=== PATIENT | male | born 1975 | race American Indian/Alaskan Native ===

== ENCOUNTER 2022-01-08 18:13 | Inpatient (IN) | payer OTHER ==
[2022-01-08] MEDS ORDERED: ETOMIDATE 20 MG/10 ML INJ IV ONE (18:33)
[2022-01-08] MEDS ORDERED: SUCCINYLCHOLINE CHLORIDE 200 MG/10 ML INJ MDV ONE (18:33)
[2022-01-08] MEDS ORDERED: ROCURONIUM 50 MG/5 ML INJ IV ONE (18:34)
[2022-01-08] MEDS ORDERED: SODIUM CHLORIDE 0.9% 1000 ML IV SOLN IV ONE (18:34)
[2022-01-08] MEDS ORDERED: ACETAMINOPHEN 650 MG RECT SUPP PR ONE (18:36)
[2022-01-08] MEDS ORDERED: LIDOCAINE (1%) 10 MG/1 ML VIAL 20 ML MDV ONE (18:36)
[2022-01-08] MEDS ORDERED: LIDOCAINE PF 100 MG/5 ML (CARDIAC SYRINGE) IV ONE (18:38)
[2022-01-08] MEDS ORDERED: LIP THERAPY VASELINE TP PRN (18:59)
[2022-01-08] MEDS ORDERED: MINERAL OIL/PETROLATUM, WHITE OPHTH OINT 3.5 GM OU PRN (18:59)
--- NOTE | 2022-01-08 19:05 | Emergency Department Report ---
ED Altered Mental Status HPI - General Chief Complaint: Altered Mental Status Stated Complaint: ams Time Seen by Provider: 01/08/22 18:20 Source: EMS Mode of arrival: Stretcher Limitations: Altered Mental Status - History of Present Illness Initial Comments: 46-year-old male with a past remote history of hypertension presents to the hospital with alteration mental status. EMS reports that patient was combative at the scene and fighting with them. He received Haldol 5 mg, Benadryl 50 mg, and Versed 5 mg prior to arrival. Patient is noted to have significant hypertension with a blood glucose of 405 as per EMS. presents at the same time as EMS stating that she last spoke to the patient at 1 PM and he was acting normal. He is complaining of headache for last 2 days. She called him around 4:15 PM he did not answer the phone. He has a previous history of hypertension but is not currently on meds. He apparently does not have any history of diabetes. He has not been complaining of any fevers or infectious symptoms. She denies that he abuses drugs. He received his COVID booster 2 weeks ago Patient presents agitated with sonorous respirations unable to provide any history of present illness. Given history and presentation decision was made to intubate patient early for airway protection and stabilization for further imaging and work-up. Patient was noted to be tachycardic, significantly hypertensive, febrile, and diaphoretic upon arrival - Related Data Allergies Allergy/AdvReac Type Severity Reaction Status Date / Time No Known Allergies Allergy Verified 01/08/22 18:54 ED Review of Systems ROS: Stated complaint: ams Other details as noted in HPI Comment: Unobtainable due to pts medical conditions ED Past Medical Hx - Past Medical History Hx Hypertension: Yes Hx Diabetes: Yes - Surgical History Past Surgical History?: No ED Physical Exam - General Limitations: Altered Mental Status - Other Other exam information: General: Altered Head: Atraumatic Eyes: normal appearance, bilateral pinpoint pupils without Neck: Normal appearance Chest: Clear to auscultation bilaterally CV: Tachycardic regular rhythm Abdomen: Soft, normal bowel sounds, nontender, nondistended, no rebound or guarding Back: Normal inspection Extremity: Normal inspection, full range of motion Neuro: Lethargic, sonorous respirations, intermittent combativeness bilateral medial upper and lower extremities with grossly 5/5 strength requiring restraint Psych: Appropriate behavior Skin: Diaphoretic movement of bilateral ED Course Vital Signs 01/08/22 01/08/22 01/08/22 18:18 18:58 19:40 Temperature 102.9 F H Pulse Rate 130 H 151 H 156 H Respiratory 24 26 H Rate Blood Pressure 252/178 Blood Pressure 235/160 210/186 [Left] O2 Sat by Pulse 100 99 100 Oximetry 01/08/22 01/08/22 22:27 22:30 Temperature Pulse Rate 115 H 114 H Respiratory 30 H 30 H Rate Blood Pressure Blood Pressure 152/103 160/98 [Left] O2 Sat by Pulse 100 100 Oximetry - Consultations Consultation #1: 01/08/22 22:02 yusra KAYE approved admission here, 01/08/22 23:13 case d/w Critical care MD Dr Foster - Intubation Time Out Performed: Yes Sedative: Etomidate Mg Given: 20 Paralytic: Rocuronium Mg Given: 100 Laryngoscope: fiberoptic video scope Size: 4 ET Tube Size: 7.5 Tube Secured Depth (cm): 23 Tube Secured Location: lips Tube Placement Confirmation: visualized tube passing t, equal breath sounds bilat, no breath sounds over epi, confirmation by capnometr Patient Tolerated Procedure: well, no complications Intubation Complications: none - Lumbar Puncture Consent Obtained: written consent Time Out Performed: Yes Indication for Procedure: headache, fever work up Patient Position: left lateral decubitus Skin Prep: Povidone-Iodine 1% Spinal Needle Gauge: 20G Spinal Needle Length: 3.5in Interspace Used: L3-L4 Fluid Initially Obtained: clear Complications: none Patient Tolerated Procedure: well - Lab Data Result diagrams: 01/08/22 18:58 01/08/22 22:26 Lab Results 01/08/22 01/08/22 01/08/22 Range/Units 18:31 18:58 18:58 WBC 13.6 H (4.5-11.0) K/mm3 RBC 6.06 H (3.65-5.03) M/mm3 Hgb 18.1 H (11.8-15.2) gm/dl Hct 55.9 H (35.5-45.6) % MCV 92 (84-94) fl MCH 30 (28-32) pg MCHC 32 (32-34) % RDW 13.0 L (13.2-15.2) % Plt Count 178 (140-440) K/mm3 Lymph % (Auto) 14.1 (13.4-35.0) % [place] % (Auto) 4.5 (0.0-7.3) % Eos % (Auto) 0.0 (0.0-4.3) % Baso % (Auto) 0.3 (0.0-1.8) % Lymph # (Auto) 1.9 (1.2-5.4) K/mm3 [place] # (Auto) 0.6 (0.0-0.8) K/mm3 Eos # (Auto) 0.0 (0.0-0.4) K/mm3 Baso # (Auto) 0.0 (0.0-0.1) K/mm3 Seg Neutrophils % 81.1 H (40.0-70.0) % Seg Neutrophils # 11.0 H (1.8-7.7) K/mm3 PT (12.2-14.9) Sec. INR (0.87-1.13) APTT (24.2-36.6) Sec. ABG pH (7.320-7.450) POC ABG pCO2 (32.0-48.0) mmHg POC ABG pO2 (83-108) mmHg POC ABG HCO3 ABG O2 Saturation (0-100) POC ABG Base Excess ABG Hemoglobin (12.0-17.5) ABG Oxyhemoglobin (94-98) ABG Methemoglobin (0.0-1.5) VBG pH (7.320-7.420) Carboxyhemoglobin (0.5-1.5) FiO2 % Sodium 134 L (137-145) mmol/L Potassium 4.2 (3.6-5.0) mmol/L Chloride 89.7 L (98-107) mmol/L Carbon Dioxide 18 L (22-30) mmol/L Anion Gap 31 mmol/L BUN 19 (9-20) mg/dL Creatinine 1.4 H (0.8-1.3) mg/dL Estimated GFR 55 ml/min BUN/Creatinine Ratio 14 % Glucose 663 H* (75-100) mg/dL POC Glucose > 600 H (70-105) mg/dL Hemoglobin A1c (4-6) % Lactic Acid (0.7-2.0) mmol/L Calcium 10.1 (8.4-10.2) mg/dL Phosphorus (2.5-4.5) mg/dL Magnesium (1.7-2.3) mg/dL Total Bilirubin 0.60 (0.1-1.2) mg/dL AST 26 (5-40) units/L ALT 34 (7-56) units/L Alkaline Phosphatase 216 H (35-129) units/L Ammonia (25-60) umol/L Troponin T < 0.010 (0.00-0.029) ng/mL Total Protein 8.6 H (6.3-8.2) g/dL Albumin 4.8 (3.9-5) g/dL Albumin/Globulin Ratio 1.3 % TSH (0.270-4.200) mlU/mL Urine Color (Yellow) Urine Turbidity (Clear) Urine pH (5.0-7.0) Ur Specific [place] (1.003-1.030) Urine Protein (Negative) mg/dL Urine Glucose (UA) (Negative) mg/dL Urine Ketones (Negative) mg/dL Urine Blood (Negative) Urine Nitrite (Negative) Urine Bilirubin (Negative) Urine Urobilinogen (<2.0) mg/dL Ur Leukocyte Esterase (Negative) Urine WBC (Auto) (0.0-6.0) /HPF Urine RBC (Auto) (0.0-6.0) /HPF U Epithel Cells (Auto) (0-13.0) /HPF Urine Mucus /HPF CSF Appearance CSF Color CSF WBC (1-10) /mm3 CSF RBC (0-0) /mm3 CSF Glucose mg/dL CSF Total Protein mg/dL Urine Opiates Screen Urine Methadone Screen Ur Barbiturates Screen Ur Phencyclidine Scrn Ur Amphetamines Screen U Benzodiazepines Scrn Urine Cocaine Screen U Marijuana (THC) Screen Drugs of Abuse Note Plasma/Serum Alcohol (0-0.07) % Blood Type Antibody Screen 01/08/22 01/08/22 01/08/22 Range/Units 18:58 18:58 18:58 WBC (4.5-11.0) K/mm3 RBC (3.65-5.03) M/mm3 Hgb (11.8-15.2) gm/dl Hct (35.5-45.6) % MCV (84-94) fl MCH (28-32) pg MCHC (32-34) % RDW (13.2-15.2) % Plt Count (140-440) K/mm3 Lymph % (Auto) (13.4-35.0) % [place] % (Auto) (0.0-7.3) % Eos % (Auto) (0.0-4.3) % Baso % (Auto) (0.0-1.8) % Lymph # (Auto) (1.2-5.4) K/mm3 [place] # (Auto) (0.0-0.8) K/mm3 Eos # (Auto) (0.0-0.4) K/mm3 Baso # (Auto) (0.0-0.1) K/mm3 Seg Neutrophils % (40.0-70.0) % Seg Neutrophils # (1.8-7.7) K/mm3 PT 14.6 (12.2-14.9) Sec. INR 1.03 (0.87-1.13) APTT 20.1 L (24.2-36.6) Sec. ABG pH (7.320-7.450) POC ABG pCO2 (32.0-48.0) mmHg POC ABG pO2 (83-108) mmHg POC ABG HCO3 ABG O2 Saturation (0-100) POC ABG Base Excess ABG Hemoglobin (12.0-17.5) ABG Oxyhemoglobin (94-98) ABG Methemoglobin (0.0-1.5) VBG pH 7.262 L (7.320-7.420) Carboxyhemoglobin (0.5-1.5) FiO2 % Sodium (137-145) mmol/L Potassium (3.6-5.0) mmol/L Chloride (98-107) mmol/L Carbon Dioxide (22-30) mmol/L Anion Gap mmol/L BUN (9-20) mg/dL Creatinine (0.8-1.3) mg/dL Estimated GFR ml/min BUN/Creatinine Ratio % Glucose (75-100) mg/dL POC Glucose (70-105) mg/dL Hemoglobin A1c (4-6) % Lactic Acid 6.80 H* (0.7-2.0) mmol/L Calcium (8.4-10.2) mg/dL Phosphorus (2.5-4.5) mg/dL Magnesium (1.7-2.3) mg/dL Total Bilirubin (0.1-1.2) mg/dL AST (5-40) units/L ALT (7-56) units/L Alkaline Phosphatase (35-129) units/L Ammonia (25-60) umol/L Troponin T (0.00-0.029) ng/mL Total Protein (6.3-8.2) g/dL Albumin (3.9-5) g/dL Albumin/Globulin Ratio % TSH (0.270-4.200) mlU/mL Urine Color (Yellow) Urine Turbidity (Clear) Urine pH (5.0-7.0) Ur Specific [place] (1.003-1.030) Urine Protein (Negative) mg/dL Urine Glucose (UA) (Negative) mg/dL Urine Ketones (Negative) mg/dL Urine Blood (Negative) Urine Nitrite (Negative) Urine Bilirubin (Negative) Urine Urobilinogen (<2.0) mg/dL Ur Leukocyte Esterase (Negative) Urine WBC (Auto) (0.0-6.0) /HPF Urine RBC (Auto) (0.0-6.0) /HPF U Epithel Cells (Auto) (0-13.0) /HPF Urine Mucus /HPF CSF Appearance CSF Color CSF WBC (1-10) /mm3 CSF RBC (0-0) /mm3 CSF Glucose mg/dL CSF Total Protein mg/dL Urine Opiates Screen Urine Methadone Screen Ur Barbiturates Screen Ur Phencyclidine Scrn Ur Amphetamines Screen U Benzodiazepines Scrn Urine Cocaine Screen U Marijuana (THC) Screen Drugs of Abuse Note Plasma/Serum Alcohol (0-0.07) % Blood Type Antibody Screen 01/08/22 01/08/22 01/08/22 Range/Units 18:58 18:58 18:58 WBC (4.5-11.0) K/mm3 RBC (3.65-5.03) M/mm3 Hgb (11.8-15.2) gm/dl Hct (35.5-45.6) % MCV (84-94) fl MCH (28-32) pg MCHC (32-34) % RDW (13.2-15.2) % Plt Count (140-440) K/mm3 Lymph % (Auto) (13.4-35.0) % [place] % (Auto) (0.0-7.3) % Eos % (Auto) (0.0-4.3) % Baso % (Auto) (0.0-1.8) % Lymph # (Auto) (1.2-5.4) K/mm3 [place] # (Auto) (0.0-0.8) K/mm3 Eos # (Auto) (0.0-0.4) K/mm3 Baso # (Auto) (0.0-0.1) K/mm3 Seg Neutrophils % (40.0-70.0) % Seg Neutrophils # (1.8-7.7) K/mm3 PT (12.2-14.9) Sec. INR (0.87-1.13) APTT (24.2-36.6) Sec. ABG pH (7.320-7.450) POC ABG pCO2 (32.0-48.0) mmHg POC ABG pO2 (83-108) mmHg POC ABG HCO3 ABG O2 Saturation (0-100) POC ABG Base Excess ABG Hemoglobin (12.0-17.5) ABG Oxyhemoglobin (94-98) ABG Methemoglobin (0.0-1.5) VBG pH (7.320-7.420) Carboxyhemoglobin (0.5-1.5) FiO2 % Sodium (137-145) mmol/L Potassium (3.6-5.0) mmol/L Chloride (98-107) mmol/L Carbon Dioxide (22-30) mmol/L Anion Gap mmol/L BUN (9-20) mg/dL Creatinine (0.8-1.3) mg/dL Estimated GFR ml/min BUN/Creatinine Ratio % Glucose (75-100) mg/dL POC Glucose (70-105) mg/dL Hemoglobin A1c (4-6) % Lactic Acid (0.7-2.0) mmol/L Calcium (8.4-10.2) mg/dL Phosphorus 7.20 H (2.5-4.5) mg/dL Magnesium 2.20 (1.7-2.3) mg/dL Total Bilirubin (0.1-1.2) mg/dL AST (5-40) units/L ALT (7-56) units/L Alkaline Phosphatase (35-129) units/L Ammonia 53.0 (25-60) umol/L Troponin T (0.00-0.029) ng/mL Total Protein (6.3-8.2) g/dL Albumin (3.9-5) g/dL Albumin/Globulin Ratio % TSH (0.270-4.200) mlU/mL Urine Color (Yellow) Urine Turbidity (Clear) Urine pH (5.0-7.0) Ur Specific [place] (1.003-1.030) Urine Protein (Negative) mg/dL Urine Glucose (UA) (Negative) mg/dL Urine Ketones (Negative) mg/dL Urine Blood (Negative) Urine Nitrite (Negative) Urine Bilirubin (Negative) Urine Urobilinogen (<2.0) mg/dL Ur Leukocyte Esterase (Negative) Urine WBC (Auto) (0.0-6.0) /HPF Urine RBC (Auto) (0.0-6.0) /HPF U Epithel Cells (Auto) (0-13.0) /HPF Urine Mucus /HPF CSF Appearance CSF Color CSF WBC (1-10) /mm3 CSF RBC (0-0) /mm3 CSF Glucose mg/dL CSF Total Protein mg/dL Urine Opiates Screen Urine Methadone Screen Ur Barbiturates Screen Ur Phencyclidine Scrn Ur Amphetamines Screen U Benzodiazepines Scrn Urine Cocaine Screen U Marijuana (THC) Screen Drugs of Abuse Note Plasma/Serum Alcohol < 0.01 (0-0.07) % Blood Type Antibody Screen 01/08/22 01/08/22 01/08/22 Range/Units 18:58 19:00 20:19 WBC (4.5-11.0) K/mm3 RBC (3.65-5.03) M/mm3 Hgb (11.8-15.2) gm/dl Hct (35.5-45.6) % MCV (84-94) fl MCH (28-32) pg MCHC (32-34) % RDW (13.2-15.2) % Plt Count (140-440) K/mm3 Lymph % (Auto) (13.4-35.0) % [place] % (Auto) (0.0-7.3) % Eos % (Auto) (0.0-4.3) % Baso % (Auto) (0.0-1.8) % Lymph # (Auto) (1.2-5.4) K/mm3 [place] # (Auto) (0.0-0.8) K/mm3 Eos # (Auto) (0.0-0.4) K/mm3 Baso # (Auto) (0.0-0.1) K/mm3 Seg Neutrophils % (40.0-70.0) % Seg Neutrophils # (1.8-7.7) K/mm3 PT (12.2-14.9) Sec. INR (0.87-1.13) APTT (24.2-36.6) Sec. ABG pH (7.320-7.450) POC ABG pCO2 (32.0-48.0) mmHg POC ABG pO2 (83-108) mmHg POC ABG HCO3 ABG O2 Saturation (0-100) POC ABG Base Excess ABG Hemoglobin (12.0-17.5) ABG Oxyhemoglobin (94-98) ABG Methemoglobin (0.0-1.5) VBG pH (7.320-7.420) Carboxyhemoglobin (0.5-1.5) FiO2 % Sodium (137-145) mmol/L Potassium (3.6-5.0) mmol/L Chloride (98-107) mmol/L Carbon Dioxide (22-30) mmol/L Anion Gap mmol/L BUN (9-20) mg/dL Creatinine (0.8-1.3) mg/dL Estimated GFR ml/min BUN/Creatinine Ratio % Glucose (75-100) mg/dL POC Glucose (70-105) mg/dL Hemoglobin A1c 10.2 H (4-6) % Lactic Acid (0.7-2.0) mmol/L Calcium (8.4-10.2) mg/dL Phosphorus (2.5-4.5) mg/dL Magnesium (1.7-2.3) mg/dL Total Bilirubin (0.1-1.2) mg/dL AST (5-40) units/L ALT (7-56) units/L Alkaline Phosphatase (35-129) units/L Ammonia (25-60) umol/L Troponin T (0.00-0.029) ng/mL Total Protein (6.3-8.2) g/dL Albumin (3.9-5) g/dL Albumin/Globulin Ratio % TSH 1.110 (0.270-4.200) mlU/mL Urine Color (Yellow) Urine Turbidity (Clear) Urine pH (5.0-7.0) Ur Specific [place] (1.003-1.030) Urine Protein (Negative) mg/dL Urine Glucose (UA) (Negative) mg/dL Urine Ketones (Negative) mg/dL Urine Blood (Negative) Urine Nitrite (Negative) Urine Bilirubin (Negative) Urine Urobilinogen (<2.0) mg/dL Ur Leukocyte Esterase (Negative) Urine WBC (Auto) (0.0-6.0) /HPF Urine RBC (Auto) (0.0-6.0) /HPF U Epithel Cells (Auto) (0-13.0) /HPF Urine Mucus /HPF CSF Appearance CSF Color CSF WBC (1-10) /mm3 CSF RBC (0-0) /mm3 CSF Glucose mg/dL CSF Total Protein mg/dL Urine Opiates Screen Urine Methadone Screen Ur Barbiturates Screen Ur Phencyclidine Scrn Ur Amphetamines Screen U Benzodiazepines Scrn Urine Cocaine Screen U Marijuana (THC) Screen Drugs of Abuse Note Plasma/Serum Alcohol (0-0.07) % Blood Type B POSITIVE Antibody Screen Negative 01/08/22 01/08/22 01/08/22 Range/Units 20:20 20:20 20:43 WBC (4.5-11.0) K/mm3 RBC (3.65-5.03) M/mm3 Hgb (11.8-15.2) gm/dl Hct (35.5-45.6) % MCV (84-94) fl MCH (28-32) pg MCHC (32-34) % RDW (13.2-15.2) % Plt Count (140-440) K/mm3 Lymph % (Auto) (13.4-35.0) % [place] % (Auto) (0.0-7.3) % Eos % (Auto) (0.0-4.3) % Baso % (Auto) (0.0-1.8) % Lymph # (Auto) (1.2-5.4) K/mm3 [place] # (Auto) (0.0-0.8) K/mm3 Eos # (Auto) (0.0-0.4) K/mm3 Baso # (Auto) (0.0-0.1) K/mm3 Seg Neutrophils % (40.0-70.0) % Seg Neutrophils # (1.8-7.7) K/mm3 PT (12.2-14.9) Sec. INR (0.87-1.13) APTT (24.2-36.6) Sec. ABG pH (7.320-7.450) POC ABG pCO2 (32.0-48.0) mmHg POC ABG pO2 (83-108) mmHg POC ABG HCO3 ABG O2 Saturation (0-100) POC ABG Base Excess ABG Hemoglobin (12.0-17.5) ABG Oxyhemoglobin (94-98) ABG Methemoglobin (0.0-1.5) VBG pH (7.320-7.420) Carboxyhemoglobin (0.5-1.5) FiO2 % Sodium (137-145) mmol/L Potassium (3.6-5.0) mmol/L Chloride (98-107) mmol/L Carbon Dioxide (22-30) mmol/L Anion Gap mmol/L BUN (9-20) mg/dL Creatinine (0.8-1.3) mg/dL Estimated GFR ml/min BUN/Creatinine Ratio % Glucose (75-100) mg/dL POC Glucose > 600 H (70-105) mg/dL Hemoglobin A1c (4-6) % Lactic Acid (0.7-2.0) mmol/L Calcium (8.4-10.2) mg/dL Phosphorus (2.5-4.5) mg/dL Magnesium (1.7-2.3) mg/dL Total Bilirubin (0.1-1.2) mg/dL AST (5-40) units/L ALT (7-56) units/L Alkaline Phosphatase (35-129) units/L Ammonia (25-60) umol/L Troponin T (0.00-0.029) ng/mL Total Protein (6.3-8.2) g/dL Albumin (3.9-5) g/dL Albumin/Globulin Ratio % TSH (0.270-4.200) mlU/mL Urine Color Yellow (Yellow) Urine Turbidity Clear (Clear) Urine pH 5.0 (5.0-7.0) Ur Specific [place] 1.030 (1.003-1.030) Urine Protein >500 (Negative) mg/dL Urine Glucose (UA) >=500 (Negative) mg/dL Urine Ketones Tr (Negative) mg/dL Urine Blood Lg (Negative) Urine Nitrite Neg (Negative) Urine Bilirubin Neg (Negative) Urine Urobilinogen < 2.0 (<2.0) mg/dL Ur Leukocyte Esterase Neg (Negative) Urine WBC (Auto) 3.0 (0.0-6.0) /HPF Urine RBC (Auto) 1.0 (0.0-6.0) /HPF U Epithel Cells (Auto) 1.0 (0-13.0) /HPF Urine Mucus Few /HPF CSF Appearance CSF Color CSF WBC (1-10) /mm3 CSF RBC (0-0) /mm3 CSF Glucose mg/dL CSF Total Protein mg/dL Urine Opiates Screen Presumptive negative Urine Methadone Screen Presumptive negative Ur Barbiturates Screen Presumptive negative Ur Phencyclidine Scrn Presumptive negative Ur Amphetamines Screen Presumptive negative U Benzodiazepines Scrn Presumptive positive Urine Cocaine Screen Presumptive negative U Marijuana (THC) Screen Presumptive negative Drugs of Abuse Note Disclamer Plasma/Serum Alcohol (0-0.07) % Blood Type Antibody Screen 01/08/22 01/08/22 01/08/22 Range/Units 21:05 21:40 21:59 WBC (4.5-11.0) K/mm3 RBC (3.65-5.03) M/mm3 Hgb (11.8-15.2) gm/dl Hct (35.5-45.6) % MCV (84-94) fl MCH (28-32) pg MCHC (32-34) % RDW (13.2-15.2) % Plt Count (140-440) K/mm3 Lymph % (Auto) (13.4-35.0) % [place] % (Auto) (0.0-7.3) % Eos % (Auto) (0.0-4.3) % Baso % (Auto) (0.0-1.8) % Lymph # (Auto) (1.2-5.4) K/mm3 [place] # (Auto) (0.0-0.8) K/mm3 Eos # (Auto) (0.0-0.4) K/mm3 Baso # (Auto) (0.0-0.1) K/mm3 Seg Neutrophils % (40.0-70.0) % Seg Neutrophils # (1.8-7.7) K/mm3 PT (12.2-14.9) Sec. INR (0.87-1.13) APTT (24.2-36.6) Sec. ABG pH 7.269 L (7.320-7.450) POC ABG pCO2 50.5 H (32.0-48.0) mmHg POC ABG pO2 402.0 H (83-108) mmHg POC ABG HCO3 22.6 ABG O2 Saturation 99.8 (0-100) POC ABG Base Excess -4.9 ABG Hemoglobin 17.6 H (12.0-17.5) ABG Oxyhemoglobin 98.8 H (94-98) ABG Methemoglobin 0.3 (0.0-1.5) VBG pH (7.320-7.420) Carboxyhemoglobin 0.7 (0.5-1.5) FiO2 % 100 Sodium (137-145) mmol/L Potassium (3.6-5.0) mmol/L Chloride (98-107) mmol/L Carbon Dioxide (22-30) mmol/L Anion Gap mmol/L BUN (9-20) mg/dL Creatinine (0.8-1.3) mg/dL Estimated GFR ml/min BUN/Creatinine Ratio % Glucose (75-100) mg/dL POC Glucose > 600 H (70-105) mg/dL Hemoglobin A1c (4-6) % Lactic Acid (0.7-2.0) mmol/L Calcium (8.4-10.2) mg/dL Phosphorus (2.5-4.5) mg/dL Magnesium (1.7-2.3) mg/dL Total Bilirubin (0.1-1.2) mg/dL AST (5-40) units/L ALT (7-56) units/L Alkaline Phosphatase (35-129) units/L Ammonia (25-60) umol/L Troponin T (0.00-0.029) ng/mL Total Protein (6.3-8.2) g/dL Albumin (3.9-5) g/dL Albumin/Globulin Ratio % TSH (0.270-4.200) mlU/mL Urine Color (Yellow) Urine Turbidity (Clear) Urine pH (5.0-7.0) Ur Specific [place] (1.003-1.030) Urine Protein (Negative) mg/dL Urine Glucose (UA) (Negative) mg/dL Urine Ketones (Negative) mg/dL Urine Blood (Negative) Urine Nitrite (Negative) Urine Bilirubin (Negative) Urine Urobilinogen (<2.0) mg/dL Ur Leukocyte Esterase (Negative) Urine WBC (Auto) (0.0-6.0) /HPF Urine RBC (Auto) (0.0-6.0) /HPF U Epithel Cells (Auto) (0-13.0) /HPF Urine Mucus /HPF CSF Appearance Clear CSF Color Colorless CSF WBC 0 (1-10) /mm3 CSF RBC 3 (0-0) /mm3 CSF Glucose 333 mg/dL CSF Total Protein 50 mg/dL Urine Opiates Screen Urine Methadone Screen Ur Barbiturates Screen Ur Phencyclidine Scrn Ur Amphetamines Screen U Benzodiazepines Scrn Urine Cocaine Screen U Marijuana (THC) Screen Drugs of Abuse Note Plasma/Serum Alcohol (0-0.07) % Blood Type Antibody Screen 01/08/22 01/08/22 01/08/22 Range/Units 22:26 22:26 23:26 WBC (4.5-11.0) K/mm3 RBC (3.65-5.03) M/mm3 Hgb (11.8-15.2) gm/dl Hct (35.5-45.6) % MCV (84-94) fl MCH (28-32) pg MCHC (32-34) % RDW (13.2-15.2) % Plt Count (140-440) K/mm3 Lymph % (Auto) (13.4-35.0) % [place] % (Auto) (0.0-7.3) % Eos % (Auto) (0.0-4.3) % Baso % (Auto) (0.0-1.8) % Lymph # (Auto) (1.2-5.4) K/mm3 [place] # (Auto) (0.0-0.8) K/mm3 Eos # (Auto) (0.0-0.4) K/mm3 Baso # (Auto) (0.0-0.1) K/mm3 Seg Neutrophils % (40.0-70.0) % Seg Neutrophils # (1.8-7.7) K/mm3 PT (12.2-14.9) Sec. INR (0.87-1.13) APTT (24.2-36.6) Sec. ABG pH (7.320-7.450) POC ABG pCO2 (32.0-48.0) mmHg POC ABG pO2 (83-108) mmHg POC ABG HCO3 ABG O2 Saturation (0-100) POC ABG Base Excess ABG Hemoglobin (12.0-17.5) ABG Oxyhemoglobin (94-98) ABG Methemoglobin (0.0-1.5) VBG pH (7.320-7.420) Carboxyhemoglobin (0.5-1.5) FiO2 % Sodium 137 (137-145) mmol/L Potassium 5.5 H D (3.6-5.0) mmol/L Chloride 97.2 L (98-107) mmol/L Carbon Dioxide 21 L (22-30) mmol/L Anion Gap 24 mmol/L BUN 22 H (9-20) mg/dL Creatinine 1.7 H (0.8-1.3) mg/dL Estimated GFR 53 ml/min BUN/Creatinine Ratio 13 % Glucose 639 H* (75-100) mg/dL POC Glucose 507 H (70-105) mg/dL Hemoglobin A1c (4-6) % Lactic Acid 4.30 H* (0.7-2.0) mmol/L Calcium 9.4 (8.4-10.2) mg/dL Phosphorus (2.5-4.5) mg/dL Magnesium (1.7-2.3) mg/dL Total Bilirubin (0.1-1.2) mg/dL AST (5-40) units/L ALT (7-56) units/L Alkaline Phosphatase (35-129) units/L Ammonia (25-60) umol/L Troponin T (0.00-0.029) ng/mL Total Protein (6.3-8.2) g/dL Albumin (3.9-5) g/dL Albumin/Globulin Ratio % TSH (0.270-4.200) mlU/mL Urine Color (Yellow) Urine Turbidity (Clear) Urine pH (5.0-7.0) Ur Specific [place] (1.003-1.030) Urine Protein (Negative) mg/dL Urine Glucose (UA) (Negative) mg/dL Urine Ketones (Negative) mg/dL Urine Blood (Negative) Urine Nitrite (Negative) Urine Bilirubin (Negative) Urine Urobilinogen (<2.0) mg/dL Ur Leukocyte Esterase (Negative) Urine WBC (Auto) (0.0-6.0) /HPF Urine RBC (Auto) (0.0-6.0) /HPF U Epithel Cells (Auto) (0-13.0) /HPF Urine Mucus /HPF CSF Appearance CSF Color CSF WBC (1-10) /mm3 CSF RBC (0-0) /mm3 CSF Glucose mg/dL CSF Total Protein mg/dL Urine Opiates Screen Urine Methadone Screen Ur Barbiturates Screen Ur Phencyclidine Scrn Ur Amphetamines Screen U Benzodiazepines Scrn Urine Cocaine Screen U Marijuana (THC) Screen Drugs of Abuse Note Plasma/Serum Alcohol (0-0.07) % Blood Type Antibody Screen - EKG Data -: EKG Interpreted by Ri EKG shows normal: sinus rhythm, ST-T waves (no stemi) Rate: tachycardia (134) When compared to previous EKG there are: previous EKG unavailable - Radiology Data Radiology results: report reviewed CHEST 1 VIEW INDICATION / CLINICAL INFORMATION: fever, intubation. COMPARISON: None available. FINDINGS: SUPPORT DEVICES: Endotracheal tube terminates approximately 6 cm above the [place] and appears in satisfactory position. HEART / MEDIASTINUM: No significant abnormality. LUNGS / PLEURA: Somewhat low lung volumes bibasilar atelectatic changes. Upper lungs clear. No pneumothorax. ADDITIONAL FINDINGS: No significant additional findings. IMPRESSION: 1. Satisfactory placement of endotracheal tube. 2. No active cardiopulmonary disease. CT HEAD WITHOUT CONTRAST INDICATION / CLINICAL INFORMATION: ams fever. TECHNIQUE: CT of the head was performed without administration of intravenous contrast. All CT scans at this location are performed using CT dose reduction for ALARA by means of automated exposure control. COMPARISON: None available. FINDINGS: CEREBRAL PARENCHYMA: Jerry-white matter differentiation within the cerebral hemispheres appears fairly well maintained. No mass lesion or cortical sulcal effacement demonstrated. No acute hemorrhage. HEMORRHAGE: None. EXTRA-AXIAL SPACES: Normal in size and morphology for the patient's age. VENTRICULAR SYSTEM: Normal in size and morphology for the patient's age. MIDLINE SHIFT / HERNIATION: None. CEREBELLUM / BRAINSTEM: Architectural details of the cerebellum are diminished likely in part due to streak artifact from the adjacent skull. Fourth ventricle appears effaced. Cerebellar tonsils lie at the foramen magnum. ORBITS: Normal as visualized. SOFT TISSUES: No significant abnormality. SKULL: No significant abnormality. PARANASAL SINUSES / MASTOID AIR CELLS: Normal as visualized. ADDITIONAL FINDINGS: None. IMPRESSION: 1. No distinct acute intracranial abnormality. Anatomic detail of the cerebellu m is diminished secondary to artifact. No gross evidence of acute cerebellar pathology. Fourth ventricle not well visualized. Mild effacement not excluded. - Medical Decision Making 46-year-old male presents to the hospital with alteration in mental status, combative behavior, fever, hypotension, and tachycardia. Patient required emergent in immediate intervention with several procedures. Collateral information obtained from family members and EMS. ED work-up reveals no signs of intracranial abnormality, normal x-ray, and lab suggestive of DKA, lactic acidosis, and sepsis. Hypertensive emergency also considered. Blood pressure improving with sedatives. Patient requiring multiple medications for adequate sedation. LP performed with results pending at disposition. Patient currently on insulin drip and received IV fluid as per sepsis protocol. Case discussed with hospitalist, critical care doctor, and ID consult ordered. Patient received antibiotic dosing for meningitis while results pending. Covid test ordered Critical Care Time: Yes Critical care time in (mins) excluding proc time.: 80 Critical care attestation.: If time is entered above; I have spent that time in minutes in the direct care of this critically ill patient, excluding procedure time. Critical Care Time: 80 Minutes of critical care time excluding procedures were used in the care of the patient. I came immediately to the bedside upon patient's arrival. I obtained history from EMS at the bedside. I discussed treatment plan with the nursing team members. I reviewed electronic record. I spoke with family to obtain medical history. Patient required multiple interventions and reassessments. Spoke with hospitalist and consultants for collaborative care ED Disposition Clinical Impression: Acute encephalopathy, Sepsis, DKA (diabetic ketoacidosis), New onset type 1 diabetes mellitus, uncontrolled, Hypertensive emergency Disposition: ADMITTED INPATIENT Is pt being admited?: Yes Condition: Stable Instructions: Diabetic Ketoacidosis (ED), Hypertension (ED) Referrals: PRIMARY CARE, [Primary Care Provider] - 3-5 Days Time of Disposition: 23:00 (Dr leonardo/hosp)
--- NOTE | 2022-01-08 19:38 | Cat Scan Report ---
CT HEAD WITHOUT CONTRAST INDICATION / CLINICAL INFORMATION: ams fever. TECHNIQUE: CT of the head was performed without administration of intravenous contrast. All CT scans at this location are performed using CT dose reduction for ALARA by means of automated exposure contr ol. COMPARISON: None available. FINDINGS: CEREBRAL PARENCHYMA: Jerry-white matter differentiation within the cerebral hemispheres appears fairly well maintained. No mass lesion or cortical sulcal effacement demonstrated. No acute hemorrhage. HEMORRHAGE: None. EXTRA-AXIAL SPACES: Normal in size and morphology for the patient's age. VENTRICULAR SYSTEM: Normal in size and morphology for the patient's age. MIDLINE SHIFT / HERNIATION: None. CEREBELLUM / BRAINSTEM: Architectural details of the cerebellum are diminished likely in part due to streak artifact from the adjacent skull. Fourth ventricle appears effaced. Cerebellar tonsils lie at the foramen magnum. ORBITS: Normal as visualized. SOFT TISSUES: No significant abnormality. SKULL: No significant abnormality. PARANASAL SINUSES / MASTOID AIR CELLS: Normal as visualized. ADDITIONAL FINDINGS: None. IMPRESSION: 1. No distinct acute intracranial abnormality. Anatomic detail of the cerebellum is diminished second cj to artifact. No gross evidence of acute cerebellar pathology. Fourth ventricle not well visualize d. Mild effacement not excluded. Signer Name: Charly Curry II, MD Signed: 01/08/2022 7:33 PM Workstation Name: [id number]
[2022-01-08 19:40] LABS: Basophils % (Auto) 0.3 % (0.0-1.8); Hematocrit 55.9 % (35.5-45.6); Hemoglobin 18.1 gm/dl (11.8-15.2); Lymphocytes # (Auto) 1.9 K/mm3 (1.2-5.4); Lymphocytes % (Auto) 14.1 % (13.4-35.0); Mean Corpuscular HGB Conc 32 % (32-34); Mean Corpuscular Volume 92 fl (84-94); Monocytes # (Auto) 0.6 K/mm3 (0.0-0.8); Monocytes % (Auto) 4.5 % (0.0-7.3); Platelet Count 178 K/mm3 (140-440); Red Blood Count 6.06 M/mm3 (3.65-5.03)
[2022-01-08 19:48] LABS: INR 1.03 (0.87-1.13)
[2022-01-08 19:49] LABS: Partial Thromboplastin Time 20.1 Sec. (24.2-36.6)
[2022-01-08 19:52] LABS: Alanine Aminotransferase 34 units/L (7-56); Albumin 4.8 g/dL (3.9-5); BUN/Creatinine Ratio 14; Blood Urea Nitrogen 19 mg/dL (9-20); Calcium 10.1 mg/dL (8.4-10.2); Hemolysis Index 35
--- NOTE | 2022-01-08 19:54 | XRay Report ---
CHEST 1 VIEW INDICATION / CLINICAL INFORMATION: fever, intubation. COMPARISON: None available. FINDINGS: SUPPORT DEVICES: Endotracheal tube terminates approximately 6 cm above the beth[place] and appears in sati sfactory position. HEART / MEDIASTINUM: No significant abnormality. LUNGS / PLEURA: Somewhat low lung volumes bibasilar atelectatic changes. Upper lungs clear. No pneumo thorax. ADDITIONAL FINDINGS: No significant additional findings. IMPRESSION: 1. Satisfactory placement of endotracheal tube. 2. No active cardiopulmonary disease. Signer Name: Charly Curry II, MD Signed: 01/08/2022 7:49 PM Workstation Name: [id number]
[2022-01-08] MEDS ORDERED: DEXTROSE 50% IN WATER (25GM) 50 ML SYRINGE IV PRN (20:08)
[2022-01-08] MEDS ORDERED: INSULIN REGULAR, HUMAN 100 UNITS/1 ML IV ONE (20:09)
[2022-01-08 20:39] LABS: Bilirubin,Urine NEG (Negative); Blood,Urine LG (Negative); Color,Urine Yellow (Yellow); Mucus,Urine FEW /HPF; Urobilinogen,Urine < 2.0 mg/dL (<2.0)
[2022-01-08 20:41] LABS: Protein,Urine >500 mg/dL (Negative)
[2022-01-08 20:46] LABS: Amphetamine Screen,Urine PRESUMPTIVE NEGATIVE; Benzodiazepines Screen,Urine PRESUMPTIVE POSITIVE; Cannabinoid Screen,Urine PRESUMPTIVE NEGATIVE; Cocaine Screen,Urine PRESUMPTIVE NEGATIVE; Methadone Screen,Urine PRESUMPTIVE NEGATIVE; Opiate Screen,Urine PRESUMPTIVE NEGATIVE
[2022-01-08] MEDS: INSULIN REGULAR, HUMAN 100 UNITS in SODIUM CHLORIDE 0.9% 99 ML IV SCH (21:00)
[2022-01-08] MEDS ORDERED: MIDAZOLAM/NS Drip 100mg/100ml 100 MG/100 ML BAG IV SCH (21:00)
[2022-01-08] MEDS ORDERED: MIDAZOLAM 5 MG/5 ML INJ MDV IV NR (21:00)
[2022-01-08] MEDS ORDERED: INSULIN REGULAR, HUMAN 100 UNITS in SODIUM CHLORIDE 0.9% 99 ML IV SCH (21:00)
[2022-01-08] MEDS ORDERED: KETAMINE 500 MG/5 ML VIAL MDV IV ONE (21:02)
[2022-01-08] MEDS ORDERED: cefTRIAXone/NS 2 GM/100 ML 2 GM/100 ML BAG IV ONE (21:39)
[2022-01-08] MEDS ORDERED: ACYCLOVIR IV ONE (21:39)
[2022-01-08] MEDS ORDERED: SODIUM CHLORIDE 0.9% IV ONE (21:39)
[2022-01-08] MEDS ORDERED: VANCOMYCIN 2,000 MG in SODIUM CHLORIDE 0.9% 500 ML 500 ML IV ONE (21:40)
[2022-01-08] MEDS ORDERED: FAMOTIDINE 20 MG/2 ML INJ IV SCH (22:00)
[2022-01-08] MEDS ORDERED: SENNOSIDES/DOCUSATE SODIUM 8.6/50 MG TAB FEEDTUBE SCH (22:00)
[2022-01-08 22:24] LABS: Glucose,CSF 333 mg/dL
[2022-01-08 23:15] LABS: Calcium 9.4 mg/dL (8.4-10.2)
[2022-01-08 23:56] LABS: Appearance,CSF Clear; Red Blood Cell,CSF 3 /mm3 (0-0); White Blood Cell,CSF 0 /mm3 (1-10)
[2022-01-09 00:05] LABS: Basophils CSF 0 %; Total Cells Counted 2 /mm3
[2022-01-09] MEDS ORDERED: HYDROmorphone 1 MG/1 ML INJ IV PRN ×2 (00:34)
[2022-01-09] MEDS ORDERED: MORPHINE 2 MG/1 ML INJ IV PRN (00:34)
[2022-01-09] MEDS ORDERED: ACETAMINOPHEN 325 MG TAB PO PRN (00:34)
[2022-01-09] MEDS ORDERED: DEXTROSE 50% IN WATER (25GM) 50 ML SYRINGE IV PRN ×2 (00:34→15:06)
[2022-01-09] MEDS ORDERED: ONDANSETRON 4 MG/2 ML INJ IV PRN (00:34)
[2022-01-09] MEDS ORDERED: ALBUTEROL 2.5 MG/3 ML NEBU IH PRN (00:34)
[2022-01-09] MEDS ORDERED: SODIUM CHLORIDE 0.9% 1000 ML 1,000 ML IV SCH (00:45)
[2022-01-09] MEDS ORDERED: VANCOMYCIN 1,000 MG in SODIUM CHLORIDE 0.9% 500 ML 500 ML IV SCH (00:45)
--- NOTE | 2022-01-09 00:45 | History and Physical Report ---
History of Present Illness Date of examination: 01/09/22 Date of admission: 01/09/22 Chief complaint: Altered mental status History of present illness: 46-year-old male with history of hypertension and diabetes presents to the hospital with alteration mental status. patient was combative at the scene and fighting with EMS at the scene. He received Haldol 5 mg, Benadryl 50 mg, and Versed 5 mg prior to arrival. Patient is noted to have significant hypertension with a blood glucose of 405 as per EMS. presents at the same time as EMS stating that she last spoke to the patient at 1 PM and he was acting normal. He is complaining of headache for last 2 days. She called him around 4:15 PM he did not answer the phone. He has not been complaining of any fevers or infectious symptoms. She denies that he abuses drugs. He received his COVID booster 2 weeks ago In the emergency room patient is found to have blood glucose of 639, bicarb is 21 creatinine 1.7 anion gap to 24 and BUN 22 also patient lactic acid is 4.30. CT scan of the head shows no distinct acute intracranial abnormality.normal x- ray, and lab suggestive of DKA, lactic acidosis, and sepsis. LP was done by the ER physician. We are going to admit the patient to the ICU. We will put the patient on IV fluid and insulin drip as per protocol. We also put the patient on IV Rocephin vancomycin and acyclovir Will consult critical care as well as infectious disease evaluation. Past History Past Medical History: diabetes, hypertension Medications and Allergies Allergies Allergy/AdvReac Type Severity Reaction Status Date / Time No Known Allergies Allergy Verified 01/08/22 18:54 Active Meds: Active Medications Dextrose (Dextrose 50% In Water (25gm) 50 Ml Syringe) 0 ml IV Q30MIN PRN; Protocol PRN Reason: Hypoglycemia Famotidine (Famotidine 20 Mg/2 Ml Inj) 20 mg IV BID SADAF Hydrophilic Ointment (Lip Therapy Vaseline) 1 applic TP Q2HR PRN PRN Reason: Dry Lips Propofol (Diprivan 10 Mg/Ml) 1,000 mg in 100 mls @ 3.688 mls/hr IV TITR SADAF; Protocol Last Titration: 01/08/22 19:10 Dose: 10 mcg/kg/min, 7.375 mls/hr Insulin Human Regular 100 (units/ Sodium Chloride) 100 mls @ 1 mls/hr IV TITR SADAF; Protocol MIDAZOLAM/NS Drip 100mg/100ml (Midazolam/Ns Drip 100mg/100ml) 100 mg in 100 mls @ 1 mls/hr IV TITR SADAF; Protocol Multi-Ingred Cream/Lotion/Oil/Oint (Mineral Oil/Petrolatum, White Ophth Oint 3.5 Gm) 1 applic OU Q4HR PRN PRN Reason: Dry Eye(s) Senna/Docusate Sodium (Sennosides/Docusate Sodium 8.6/50 Mg Tab) 1 tab FEEDTUBE BID SADAF Review of Systems Constitutional: fatigue, weakness, lethargy Neurological: change in mentation Exam - Constitutional Vitals: Temp Pulse Resp BP Pulse Ox 102.9 F H 114 H 30 H 160/98 100 01/08/22 19:40 01/08/22 22:30 01/08/22 22:30 01/08/22 22:30 01/08/22 22:30 General appearance: Present: no acute distress, well-nourished - EENT Eyes: Present: PERRL ENT: hearing intact, clear oral mucosa - Neck Neck: Present: supple, normal ROM - Respiratory Respiratory effort: normal Respiratory: bilateral: diminished - Cardiovascular Heart Sounds: Present: S1 & S2. Absent: rub, click - Extremities Extremities: pulses symmetrical, No edema Peripheral Pulses: within normal limits - Abdominal General gastrointestinal: Present: soft, non-tender, non-distended, normal bowel sounds Male genitourinary: Present: normal - Integumentary Integumentary: Present: clear, warm, dry - Musculoskeletal Musculoskeletal: gait normal, strength equal bilaterally - Psychiatric Psychiatric: other (Patient is on vent) - Neurologic Neurologic: CNII-XII intact, moves all extremities, other (Patient is on vent) HEART Score - HEART Score Troponin: Troponin T < 0.010 ng/mL (0.00-0.029) 01/08/22 18:58 Results - Labs CBC & Chem 7: 01/08/22 18:58 01/08/22 22:26 Labs: Laboratory Last Values WBC 13.6 K/mm3 (4.5-11.0) H 01/08/22 18:58 RBC 6.06 M/mm3 (3.65-5.03) H 01/08/22 18:58 Hgb 18.1 gm/dl (11.8-15.2) H 01/08/22 18:58 Hct 55.9 % (35.5-45.6) H 01/08/22 18:58 MCV 92 fl (84-94) 01/08/22 18:58 MCH 30 pg (28-32) 01/08/22 18:58 MCHC 32 % (32-34) 01/08/22 18:58 RDW 13.0 % (13.2-15.2) L 01/08/22 18:58 Plt Count 178 K/mm3 (140-440) 01/08/22 18:58 Lymph % (Auto) 14.1 % (13.4-35.0) 01/08/22 18:58 [place] % (Auto) 4.5 % (0.0-7.3) 01/08/22 18:58 Eos % (Auto) 0.0 % (0.0-4.3) 01/08/22 18:58 Baso % (Auto) 0.3 % (0.0-1.8) 01/08/22 18:58 Lymph # (Auto) 1.9 K/mm3 (1.2-5.4) 01/08/22 18:58 [place] # (Auto) 0.6 K/mm3 (0.0-0.8) 01/08/22 18:58 Eos # (Auto) 0.0 K/mm3 (0.0-0.4) 01/08/22 18:58 Baso # (Auto) 0.0 K/mm3 (0.0-0.1) 01/08/22 18:58 Seg Neutrophils % 81.1 % (40.0-70.0) H 01/08/22 18:58 Seg Neutrophils # 11.0 K/mm3 (1.8-7.7) H 01/08/22 18:58 PT 14.6 Sec. (12.2-14.9) 01/08/22 18:58 INR 1.03 (0.87-1.13) 01/08/22 18:58 APTT 20.1 Sec. (24.2-36.6) L 01/08/22 18:58 ABG pH 7.269 (7.320-7.450) L 01/08/22 21:05 POC ABG pCO2 50.5 mmHg (32.0-48.0) H 01/08/22 21:05 POC ABG pO2 402.0 mmHg (83-108) H 01/08/22 21:05 POC ABG HCO3 22.6 01/08/22 21:05 ABG O2 Saturation 99.8 (0-100) 01/08/22 21:05 POC ABG Base Excess -4.9 01/08/22 21:05 ABG Hemoglobin 17.6 (12.0-17.5) H 01/08/22 21:05 ABG Oxyhemoglobin 98.8 (94-98) H 01/08/22 21:05 ABG Methemoglobin 0.3 (0.0-1.5) 01/08/22 21:05 VBG pH 7.262 (7.320-7.420) L 01/08/22 18:58 Carboxyhemoglobin 0.7 (0.5-1.5) 01/08/22 21:05 FiO2 % 100 01/08/22 21:05 Sodium 137 mmol/L (137-145) 01/08/22 22:26 Potassium 5.5 mmol/L (3.6-5.0) H D 01/08/22 22:26 Chloride 97.2 mmol/L (98-107) L 01/08/22 22:26 Carbon Dioxide 21 mmol/L (22-30) L 01/08/22 22:26 Anion Gap 24 mmol/L 01/08/22 22:26 BUN 22 mg/dL (9-20) H 01/08/22 22:26 Creatinine 1.7 mg/dL (0.8-1.3) H 01/08/22 22:26 Estimated GFR 53 ml/min 01/08/22 22:26 BUN/Creatinine Ratio 13 % 01/08/22 22:26 Glucose 639 mg/dL (75-100) H* 01/08/22 22:26 POC Glucose 422 mg/dL (70-105) H 01/09/22 00:32 Hemoglobin A1c 10.2 % (4-6) H 01/08/22 20:19 Lactic Acid 4.30 mmol/L (0.7-2.0) H* 01/08/22 22:26 Calcium 9.4 mg/dL (8.4-10.2) 01/08/22 22:26 Phosphorus 7.20 mg/dL (2.5-4.5) H 01/08/22 18:58 Magnesium 2.20 mg/dL (1.7-2.3) 01/08/22 18:58 Total Bilirubin 0.60 mg/dL (0.1-1.2) 01/08/22 18:58 AST 26 units/L (5-40) 01/08/22 18:58 ALT 34 units/L (7-56) 01/08/22 18:58 Alkaline Phosphatase 216 units/L (35-129) H 01/08/22 18:58 Ammonia 53.0 umol/L (25-60) 01/08/22 18:58 Troponin T < 0.010 ng/mL (0.00-0.029) 01/08/22 18:58 Total Protein 8.6 g/dL (6.3-8.2) H 01/08/22 18:58 Albumin 4.8 g/dL (3.9-5) 01/08/22 18:58 Albumin/Globulin Ratio 1.3 % 01/08/22 18:58 TSH 1.110 mlU/mL (0.270-4.200) 01/08/22 18:58 Urine Color Yellow (Yellow) 01/08/22 20:20 Urine Turbidity Clear (Clear) 01/08/22 20:20 Urine pH 5.0 (5.0-7.0) 01/08/22 20:20 Ur Specific [place] 1.030 (1.003-1.030) 01/08/22 20:20 Urine Protein >500 mg/dL (Negative) 01/08/22 20:20 Urine Glucose (UA) >=500 mg/dL (Negative) 01/08/22 20:20 Urine Ketones Tr mg/dL (Negative) 01/08/22 20:20 Urine Blood Lg (Negative) 01/08/22 20:20 Urine Nitrite Neg (Negative) 01/08/22 20:20 Urine Bilirubin Neg (Negative) 01/08/22 20:20 Urine Urobilinogen < 2.0 mg/dL (<2.0) 01/08/22 20:20 Ur Leukocyte Esterase Neg (Negative) 01/08/22 20:20 Urine WBC (Auto) 3.0 /HPF (0.0-6.0) 01/08/22 20:20 Urine RBC (Auto) 1.0 /HPF (0.0-6.0) 01/08/22 20:20 U Epithel Cells (Auto) 1.0 /HPF (0-13.0) 01/08/22 20:20 Urine Mucus Few /HPF 01/08/22 20:20 CSF Appearance Clear 01/08/22 21:40 CSF Color Colorless 01/08/22 21:40 CSF WBC 0 /mm3 (1-10) 01/08/22 21:40 CSF RBC 3 /mm3 (0-0) 01/08/22 21:40 CSF Seg Neutrophils 100.0 % (0-6) 01/08/22 21:40 CSF Lymphocytes % 0 % (40-80) 01/08/22 21:40 CSF Reactive Lymphs 0 % 01/08/22 21:40 CSF Monocytes % 0 % (15-45) 01/08/22 21:40 CSF Eosinophils % 0 % 01/08/22 21:40 CSF Basophils 0 % 01/08/22 21:40 CSF Pathologist Review C 01/08/22 21:40 CSF Glucose 333 mg/dL 01/08/22 21:40 CSF Total Protein 50 mg/dL 01/08/22 21:40 Urine Opiates Screen Presumptive negative 01/08/22 20:20 Urine Methadone Screen Presumptive negative 01/08/22 20:20 Ur Barbiturates Screen Presumptive negative 01/08/22 20:20 Ur Phencyclidine Scrn Presumptive negative 01/08/22 20:20 Ur Amphetamines Screen Presumptive negative 01/08/22 20:20 U Benzodiazepines Scrn Presumptive positive 01/08/22 20:20 Urine Cocaine Screen Presumptive negative 01/08/22 20:20 U Marijuana (THC) Screen Presumptive negative 01/08/22 20:20 Drugs of Abuse Note Disclamer 01/08/22 20:20 Plasma/Serum Alcohol < 0.01 % (0-0.07) 01/08/22 18:58 Blood Type B POSITIVE 01/08/22 19:00 Antibody Screen Negative 01/08/22 19:00 - Imaging and Cardiology Chest x-ray: report reviewed CT Scan - head: report reviewed Assessment and Plan VTE prophylaxis?: Mechanical Plan of care discussed with patient/family: Yes - Patient Problems (1) Acute metabolic encephalopathy Current Visit: Yes Status: Acute Plan to address problem: Admit the patient to the ICU. Metabolic encephalopathy is secondary to multifactorial sepsis DKA hypertension emergency. We put the patient on IV fluid and insulin drip as per protocol. We also put the patient on IV Rocephin vancomycin and acyclovir will consult critical care as well as infectious disease for evaluation. Recheck CBC BMP in the morning (2) Acute respiratory failure Current Visit: Yes Status: Acute Plan to address problem: Patient is status post intubation. DuoNeb by nebulizer every 4 hours. Albuterol via nebulizer every 4 hours as needed. Reconsult critical care evaluation (3) DKA (diabetic ketoacidosis) Current Visit: Yes Status: Acute Plan to address problem: Normal saline at the rate of 125 cc/h. Insulin drip as per protocol. Serial BMP. Diabetic education (4) Hypertensive emergency Current Visit: Yes Status: Acute Plan to address problem: Hydralazine 10 mg IV every 6 hours as needed. We continue the home medication (5) New onset type 1 diabetes mellitus, uncontrolled Current Visit: Yes Status: Acute Plan to address problem: Normal saline at the rate of 125 cc/h. Insulin drip as per protocol. Serial BMP. Diabetic education (6) Sepsis Current Visit: Yes Status: Acute Plan to address problem: Rocephin 2 g IV daily. Vancomycin 1 g IV every 12 hours. We also put the patient on acyclovir. We consult infectious disease evaluation we will do the blood culture, urine culture and sputum culture. Recheck CBC and lactic acid in the morning (7) DVT prophylaxis Current Visit: Yes Status: Acute Plan to address problem: SCD for DVT prophylaxis due to LP. Pepcid 20 mg IV every 12 hours for GI prophylaxis. Patient is a full code
[2022-01-09] MEDS ORDERED: DEXTROSE 10% *Hypoglycemia IV PRN (00:54)
[2022-01-09] MEDS ORDERED: VANCOMYCIN PHARMACY TO DOSE IV SCH (01:00)
[2022-01-09] MEDS ORDERED: cefTRIAXone/NS 2 GM/100 ML 2 GM/100 ML BAG IV SCH (01:00)
[2022-01-09 01:16] LABS: Calcium 9.1 mg/dL (8.4-10.2)
[2022-01-09 02:44] LABS: Calcium 9.5 mg/dL (8.4-10.2)
[2022-01-09] MEDS: D5W/0.45% NACL/KCL 20 MEQ 20 MEQ/1,000 ML BAG IV SCH ×2 (03:30→12:26)
--- NOTE | 2022-01-09 05:26 | XRay Report ---
XR chest 1V ap INDICATION / CLINICAL INFORMATION: follow up respiratory failure. COMPARISON: Radiograph from yesterday. FINDINGS: SUPPORT DEVICES: Unchanged. HEART /PULMONARY VASCULATURE: No significant abnormality. LUNGS / PLEURA: Low lung volumes remain with bilateral atelectatic changes, unchanged. No new or incr easing airspace consolidation. No sizable pleural effusion. IMPRESSION: 1. No significant interval change. No acute cardiopulmonary disease. Signer Name: Luis Hollingsworth MD Signed: 01/09/2022 5:22 AM Workstation Name: [id number]
[2022-01-09 05:36] LABS: Calcium 8.8 mg/dL (8.4-10.2)
[2022-01-09] MEDS ORDERED: IPRATROPIUM/ALBUTEROL SULFATE 3 ML AMPUL.NEB IH ONE (07:53)
[2022-01-09] MEDS ORDERED: SODIUM CHLORIDE 0.9% 1000 ML 2,000 ML IV ONE (08:00)
[2022-01-09] MEDS: INSULIN REGULAR, HUMAN 100 UNITS in SODIUM CHLORIDE 0.9% 99 ML IV SCH (08:15)
[2022-01-09] MEDS ORDERED: fentaNYL 100 MCG/2 ML INJ IV PRN (08:52)
[2022-01-09] MEDS ORDERED: fentaNYL DRIP Premix 2,000 MCG/100 ML BAG IV SCH (09:00)
[2022-01-09] MEDS: FAMOTIDINE 20 MG/2 ML INJ IV SCH ×2 (09:34→21:56)
--- NOTE | 2022-01-09 10:05 | Electrocardiograph Report ---
[facility] Test Date: 2022-01-08 Test Time: 19:41:51 Pat Name: Mary Slade Department: Room: A253 1 Gender: M Ep Tech: NURSE : 1975 Requested By: BIBI PARKER Order Number: [id number] Reading MD: Vikas Mandujano Measurements Intervals [place] Rate: 134 P: 82 [place]: 141 QRS: -16 QRSD: 86 T: 100 QT: 298 QTc: 446 Interpretive Statements Sinus tachycardia Baseline artifacts noted. Nonspecific T abnormalities, lateral leads No previous ECG available for comparison Electronically Signed On 01-09-2022 10:05:03 EST by Vikas Mandujano
--- NOTE | 2022-01-09 10:22 | Consultation ---
History of Present Illness - Reason for Consult Consult date: 01/09/22 acute renal failure - History of Present Illness 46-year-old male with history of hypertension and diabetes presents to the hospital with alteration mental status. In the emergency room patient is found to have DKA. CT scan of the head shows no distinct acute intracranial abnormality. normal x-ray. LP was done by the ER physician. HE was admitted to ICU after was intubated. Renal consult was requested for ROLA Past History Past Medical History: diabetes, hypertension Medications and Allergies Allergies Allergy/AdvReac Type Severity Reaction Status Date / Time No Known Allergies Allergy Verified 01/08/22 18:54 Home Medications Medication Instructions Recorded Confirmed Last Taken Type No Known Home Medications [No 01/09/22 01/09/22 Unknown History Reported Home Medications] Active Meds: Active Medications Acetaminophen (Acetaminophen 325 Mg Tab) 650 mg PO Q4H PRN PRN Reason: Pain MILD(1-3)/Fever >100.5/[place] Albuterol (Albuterol 2.5 Mg/3 Ml Nebu) 2.5 mg IH Q3HRT PRN PRN Reason: Shortness Of Breath Albuterol/Ipratropium (Ipratropium/Albuterol Sulfate 3 Ml Ampul.Neb) 1 ampul IH Q6HRT SADAF Dextrose (Dextrose 10% *Hypoglycemia) 0 ml IV PRN PRN; Protocol PRN Reason: Hypoglycemia Famotidine (Famotidine 20 Mg/2 Ml Inj) 10 mg IV BID SADAF Last Admin: 01/09/22 09:34 Dose: 10 mg Fentanyl (Fentanyl 100 Mcg/2 Ml Inj) 50 mcg IV Q10MIN PRN PRN Reason: ANALGESIA Hydrophilic Ointment (Lip Therapy Vaseline) 1 applic TP Q2HR PRN PRN Reason: Dry Lips Propofol (Diprivan 10 Mg/Ml) 1,000 mg in 100 mls @ 3.688 mls/hr IV TITR SADAF; Protocol Last Admin: 01/09/22 07:37 Dose: 40 mcg/kg/min, 29.502 mls/hr Insulin Human Regular 100 (units/ Sodium Chloride) 100 mls @ 1 mls/hr IV TITR SADAF; Protocol Last Admin: 01/09/22 08:15 Dose: 6 units/hr, 6 mls/hr Sodium Chloride (Nacl 0.9% 1000 Ml) 1,000 mls @ 125 mls/hr IV DIRECT SADAF Last Admin: 01/09/22 01:42 Dose: 125 mls/hr Potassium Chloride/Dextrose/Sod Cl (D5w/0.45% Nacl/Kcl 20 Meq) 20 meq in 1,000 mls @ 125 mls/hr IV DIRECT SADAF Last Admin: 01/09/22 03:30 Dose: 125 mls/hr Ceftriaxone Sodium (Rocephin/Ns 2 Gm/100 Ml) 2 gm in 100 mls @ 200 mls/hr IV Q24H [facility]; Protocol Last Admin: 01/09/22 04:26 Dose: 200 mls/hr Fentanyl Citrate (Fentanyl Drip Premix) 2,000 mcg in 100 mls @ 6.01 mls/hr IV TITR SADAF; Protocol Last Admin: 01/09/22 09:13 Dose: 1 mcg/kg/hr, 6.01 mls/hr Multi-Ingred Cream/Lotion/Oil/Oint (Mineral Oil/Petrolatum, White Ophth Oint 3.5 Gm) 1 applic OU Q4HR PRN PRN Reason: Dry Eye(s) Ondansetron HCl (Ondansetron 4 Mg/2 Ml Inj) 4 mg IV Q8H PRN PRN Reason: Nausea And Vomiting Senna/Docusate Sodium (Sennosides/Docusate Sodium 8.6/50 Mg Tab) 1 tab FEEDTUBE BID [facility] Last Admin: 01/09/22 02:14 Dose: Not Given Sodium Chloride (Sodium Chloride 0.9% 10 Ml Flush Syringe) 10 ml IV BID [facility] Sodium Chloride (Sodium Chloride 0.9% 10 Ml Flush Syringe) 10 ml IV PRN PRN PRN Reason: LINE FLUSH Exam - Vital Signs Vital signs: Vital Signs Pulse Resp BP Pulse Ox 130 H 24 235/160 100 01/08/22 18:18 01/08/22 18:18 01/08/22 18:18 01/08/22 18:18 Results - Lab Results 01/08/22 18:58 01/09/22 08:17 Most recent lab results ABG pH 7.365 (7.320-7.450) 01/09/22 09:15 ABG O2 Saturation 96.5 (0-100) 01/09/22 09:15 Calcium 9.0 mg/dL (8.4-10.2) 01/09/22 08:17 Phosphorus 4.20 mg/dL (2.5-4.5) D 01/09/22 00:46 Magnesium 2.60 mg/dL (1.7-2.3) H 01/09/22 00:46 Assessment and Plan (1) Acute renal failure (2) Acute respiratory failure (3) DKA (diabetic ketoacidosis) (4) Hypertensive emergency (5) New onset type 1 diabetes mellitus, uncontrolled (6) Sepsis Unknown baseline kidney function, possible 2/2 DM ROLA possibly secondary to ischemic ATN will check renal US will check urine lytes IVF per DKA protocol renally dose meds strict I&O daily weights
--- NOTE | 2022-01-09 11:56 | Consultation ---
History of Present Illness - Reason for Consult Consult date: 01/09/22 fever, DKA, AMS Requesting physician: BIBI PARKER - History of Present Illness The patient is a 45-year-old male with hypertension was admitted to the hospital with altered mental status. He was found to have hyperglycemia and hypertension, was combative requiring medications, was subsequently intubated. He was started on empiric antimicrobials for meningitis/encephalitis, infectious diseases was consulted for additional evaluation. He has since undergone a lumbar puncture. Unable to provide history, is present outside the room who provided history, stated that patient was not feeling well for the last 2 weeks after receiving his COVID-19 vaccination booster. More recently he was doing all right but then again was having headache for about 2 days. Never had any fever, noted to be febrile here with a T-max of 102.9 F. Review of Systems: Limited due to mechanical ventilation Past History Past Medical History: diabetes, hypertension Social history: other ( denies substance abuse) Family history: other (limited due to vent) Medications and Allergies Allergies Allergy/AdvReac Type Severity Reaction Status Date / Time No Known Allergies Allergy Verified 01/08/22 18:54 Home Medications Medication Instructions Recorded Confirmed Last Taken Type No Known Home Medications [No 01/09/22 01/09/22 Unknown History Reported Home Medications] Active Meds: Active Medications Acetaminophen (Acetaminophen 325 Mg Tab) 650 mg PO Q4H PRN PRN Reason: Pain MILD(1-3)/Fever >100.5/[place] Albuterol (Albuterol 2.5 Mg/3 Ml Nebu) 2.5 mg IH Q3HRT PRN PRN Reason: Shortness Of Breath Albuterol/Ipratropium (Ipratropium/Albuterol Sulfate 3 Ml Ampul.Neb) 1 ampul IH Q6HRT SADAF Dextrose (Dextrose 10% *Hypoglycemia) 0 ml IV PRN PRN; Protocol PRN Reason: Hypoglycemia Famotidine (Famotidine 20 Mg/2 Ml Inj) 10 mg IV BID [facility] Last Admin: 01/09/22 09:34 Dose: 10 mg Fentanyl (Fentanyl 100 Mcg/2 Ml Inj) 50 mcg IV Q10MIN PRN PRN Reason: ANALGESIA Hydrophilic Ointment (Lip Therapy Vaseline) 1 applic TP Q2HR PRN PRN Reason: Dry Lips Propofol (Diprivan 10 Mg/Ml) 1,000 mg in 100 mls @ 3.688 mls/hr IV TITR SADAF; Protocol Last Admin: 01/09/22 07:37 Dose: 40 mcg/kg/min, 29.502 mls/hr Insulin Human Regular 100 (units/ Sodium Chloride) 100 mls @ 1 mls/hr IV TITR SADAF; Protocol Last Titration: 01/09/22 10:30 Dose: 6 units/hr, 6 mls/hr Sodium Chloride (Nacl 0.9% 1000 Ml) 1,000 mls @ 125 mls/hr IV DIRECT SADAF Last Admin: 01/09/22 01:42 Dose: 125 mls/hr Potassium Chloride/Dextrose/Sod Cl (D5w/0.45% Nacl/Kcl 20 Meq) 20 meq in 1,000 mls @ 125 mls/hr IV DIRECT SADAF Last Admin: 01/09/22 03:30 Dose: 125 mls/hr Ceftriaxone Sodium (Rocephin/Ns 2 Gm/100 Ml) 2 gm in 100 mls @ 200 mls/hr IV Q24H [facility]ADAF; Protocol Last Admin: 01/09/22 04:26 Dose: 200 mls/hr Fentanyl Citrate (Fentanyl Drip Premix) 2,000 mcg in 100 mls @ 6.01 mls/hr IV TITR SADAF; Protocol Last Admin: 01/09/22 09:13 Dose: 1 mcg/kg/hr, 6.01 mls/hr Multi-Ingred Cream/Lotion/Oil/Oint (Mineral Oil/Petrolatum, White Ophth Oint 3.5 Gm) 1 applic OU Q4HR PRN PRN Reason: Dry Eye(s) Ondansetron HCl (Ondansetron 4 Mg/2 Ml Inj) 4 mg IV Q8H PRN PRN Reason: Nausea And Vomiting Senna/Docusate Sodium (Sennosides/Docusate Sodium 8.6/50 Mg Tab) 1 tab FEEDTUBE BID SADAF Last Admin: 01/09/22 02:14 Dose: Not Given Sodium Chloride (Sodium Chloride 0.9% 10 Ml Flush Syringe) 10 ml IV BID SADAF Sodium Chloride (Sodium Chloride 0.9% 10 Ml Flush Syringe) 10 ml IV PRN PRN PRN Reason: LINE FLUSH Physical Examination - Physical Exam Narrative exam: Physical Exam: Constitutional: sedated, intubated, on the vent Head, Ears, Nose: Normocephalic, atraumatic. External ears, nose with purulent discharge Eyes: Conjunctivae/corneas clear. No icterus. No ptosis. Neck: intubated Oral: intubated Cardiovascular: S1, S2 + Respiratory: AE fair bilaterally and equal GI: Soft, bowel sounds + Musculoskeletal: No pedal edema, no cyanosis. Skin: No rash or abscess Hem/Lymphatic: No palpable cervical or supraclavicular nodes. No lymphangitis Psych: no agitation Neurological: sedated, intubated, on the vent, exam limited - Constitutional Vitals: Vital Signs Temp Pulse Resp BP Pulse Ox 102.8 F H 88 24 129/72 98 01/09/22 03:13 01/09/22 11:11 01/09/22 11:11 01/09/22 11:11 01/09/22 11:11 Temperature -Last 24 Hours Temperature 102.8 F Temperature 101.7 F Temperature 102.9 F Results - Labs CBC & Chem 7: 01/08/22 18:58 01/09/22 08:17 Labs: Abnormal lab results 01/08/22 01/08/22 01/08/22 Range/Units 18:31 18:58 18:58 WBC 13.6 H (4.5-11.0) K/mm3 RBC 6.06 H (3.65-5.03) M/mm3 Hgb 18.1 H (11.8-15.2) gm/dl Hct 55.9 H (35.5-45.6) % RDW 13.0 L (13.2-15.2) % Seg Neutrophils % 81.1 H (40.0-70.0) % Seg Neutrophils # 11.0 H (1.8-7.7) K/mm3 APTT (24.2-36.6) Sec. ABG pH (7.320-7.450) POC ABG pCO2 (32.0-48.0) mmHg POC ABG pO2 (83-108) mmHg ABG Hemoglobin (12.0-17.5) ABG Oxyhemoglobin (94-98) VBG pH (7.320-7.420) Sodium 134 L (137-145) mmol/L Potassium (3.6-5.0) mmol/L Chloride 89.7 L (98-107) mmol/L Carbon Dioxide 18 L (22-30) mmol/L BUN (9-20) mg/dL Creatinine 1.4 H (0.8-1.3) mg/dL Glucose 663 H* (75-100) mg/dL POC Glucose > 600 H (70-105) mg/dL Hemoglobin A1c (4-6) % Lactic Acid (0.7-2.0) mmol/L Phosphorus (2.5-4.5) mg/dL Magnesium (1.7-2.3) mg/dL Alkaline Phosphatase 216 H (35-129) units/L Total Protein 8.6 H (6.3-8.2) g/dL 01/08/22 01/08/22 01/08/22 Range/Units 18:58 18:58 18:58 WBC (4.5-11.0) K/mm3 RBC (3.65-5.03) M/mm3 Hgb (11.8-15.2) gm/dl Hct (35.5-45.6) % RDW (13.2-15.2) % Seg Neutrophils % (40.0-70.0) % Seg Neutrophils # (1.8-7.7) K/mm3 APTT 20.1 L (24.2-36.6) Sec. ABG pH (7.320-7.450) POC ABG pCO2 (32.0-48.0) mmHg POC ABG pO2 (83-108) mmHg ABG Hemoglobin (12.0-17.5) ABG Oxyhemoglobin (94-98) VBG pH 7.262 L (7.320-7.420) Sodium (137-145) mmol/L Potassium (3.6-5.0) mmol/L Chloride (98-107) mmol/L Carbon Dioxide (22-30) mmol/L BUN (9-20) mg/dL Creatinine (0.8-1.3) mg/dL Glucose (75-100) mg/dL POC Glucose (70-105) mg/dL Hemoglobin A1c (4-6) % Lactic Acid 6.80 H* (0.7-2.0) mmol/L Phosphorus (2.5-4.5) mg/dL Magnesium (1.7-2.3) mg/dL Alkaline Phosphatase (35-129) units/L Total Protein (6.3-8.2) g/dL 01/08/22 01/08/22 01/08/22 Range/Units 18:58 20:19 20:43 WBC (4.5-11.0) K/mm3 RBC (3.65-5.03) M/mm3 Hgb (11.8-15.2) gm/dl Hct (35.5-45.6) % RDW (13.2-15.2) % Seg Neutrophils % (40.0-70.0) % Seg Neutrophils # (1.8-7.7) K/mm3 APTT (24.2-36.6) Sec. ABG pH (7.320-7.450) POC ABG pCO2 (32.0-48.0) mmHg POC ABG pO2 (83-108) mmHg ABG Hemoglobin (12.0-17.5) ABG Oxyhemoglobin (94-98) VBG pH (7.320-7.420) Sodium (137-145) mmol/L Potassium (3.6-5.0) mmol/L Chloride (98-107) mmol/L Carbon Dioxide (22-30) mmol/L BUN (9-20) mg/dL Creatinine (0.8-1.3) mg/dL Glucose (75-100) mg/dL POC Glucose > 600 H (70-105) mg/dL Hemoglobin A1c 10.2 H (4-6) % Lactic Acid (0.7-2.0) mmol/L Phosphorus 7.20 H (2.5-4.5) mg/dL Magnesium (1.7-2.3) mg/dL Alkaline Phosphatase (35-129) units/L Total Protein (6.3-8.2) g/dL 01/08/22 01/08/22 01/08/22 Range/Units 21:05 21:59 22:26 WBC (4.5-11.0) K/mm3 RBC (3.65-5.03) M/mm3 Hgb (11.8-15.2) gm/dl Hct (35.5-45.6) % RDW (13.2-15.2) % Seg Neutrophils % (40.0-70.0) % Seg Neutrophils # (1.8-7.7) K/mm3 APTT (24.2-36.6) Sec. ABG pH 7.269 L (7.320-7.450) POC ABG pCO2 50.5 H (32.0-48.0) mmHg POC ABG pO2 402.0 H (83-108) mmHg ABG Hemoglobin 17.6 H (12.0-17.5) ABG Oxyhemoglobin 98.8 H (94-98) VBG pH (7.320-7.420) Sodium (137-145) mmol/L Potassium (3.6-5.0) mmol/L Chloride (98-107) mmol/L Carbon Dioxide (22-30) mmol/L BUN (9-20) mg/dL Creatinine (0.8-1.3) mg/dL Glucose (75-100) mg/dL POC Glucose > 600 H (70-105) mg/dL Hemoglobin A1c (4-6) % Lactic Acid 4.30 H* (0.7-2.0) mmol/L Phosphorus (2.5-4.5) mg/dL Magnesium (1.7-2.3) mg/dL Alkaline Phosphatase (35-129) units/L Total Protein (6.3-8.2) g/dL 01/08/22 01/08/22 01/09/22 Range/Units 22:26 23:26 00:32 WBC (4.5-11.0) K/mm3 RBC (3.65-5.03) M/mm3 Hgb (11.8-15.2) gm/dl Hct (35.5-45.6) % RDW (13.2-15.2) % Seg Neutrophils % (40.0-70.0) % Seg Neutrophils # (1.8-7.7) K/mm3 APTT (24.2-36.6) Sec. ABG pH (7.320-7.450) POC ABG pCO2 (32.0-48.0) mmHg POC ABG pO2 (83-108) mmHg ABG Hemoglobin (12.0-17.5) ABG Oxyhemoglobin (94-98) VBG pH (7.320-7.420) Sodium (137-145) mmol/L Potassium 5.5 H D (3.6-5.0) mmol/L Chloride 97.2 L (98-107) mmol/L Carbon Dioxide 21 L (22-30) mmol/L BUN 22 H (9-20) mg/dL Creatinine 1.7 H (0.8-1.3) mg/dL Glucose 639 H* (75-100) mg/dL POC Glucose 507 H 422 H (70-105) mg/dL Hemoglobin A1c (4-6) % Lactic Acid (0.7-2.0) mmol/L Phosphorus (2.5-4.5) mg/dL Magnesium (1.7-2.3) mg/dL Alkaline Phosphatase (35-129) units/L Total Protein (6.3-8.2) g/dL 01/09/22 01/09/22 01/09/22 Range/Units 00:36 00:36 00:46 WBC (4.5-11.0) K/mm3 RBC (3.65-5.03) M/mm3 Hgb (11.8-15.2) gm/dl Hct (35.5-45.6) % RDW (13.2-15.2) % Seg Neutrophils % (40.0-70.0) % Seg Neutrophils # (1.8-7.7) K/mm3 APTT (24.2-36.6) Sec. ABG pH (7.320-7.450) POC ABG pCO2 (32.0-48.0) mmHg POC ABG pO2 (83-108) mmHg ABG Hemoglobin (12.0-17.5) ABG Oxyhemoglobin (94-98) VBG pH (7.320-7.420) Sodium (137-145) mmol/L Potassium (3.6-5.0) mmol/L Chloride (98-107) mmol/L Carbon Dioxide 20 L (22-30) mmol/L BUN 22 H (9-20) mg/dL Creatinine 1.7 H (0.8-1.3) mg/dL Glucose 416 H (75-100) mg/dL POC Glucose (70-105) mg/dL Hemoglobin A1c (4-6) % Lactic Acid 2.80 H* (0.7-2.0) mmol/L Phosphorus (2.5-4.5) mg/dL Magnesium 2.60 H (1.7-2.3) mg/dL Alkaline Phosphatase (35-129) units/L Total Protein (6.3-8.2) g/dL 01/09/22 01/09/22 01/09/22 Range/Units 01:35 02:07 02:07 WBC (4.5-11.0) K/mm3 RBC (3.65-5.03) M/mm3 Hgb (11.8-15.2) gm/dl Hct (35.5-45.6) % RDW (13.2-15.2) % Seg Neutrophils % (40.0-70.0) % Seg Neutrophils # (1.8-7.7) K/mm3 APTT (24.2-36.6) Sec. ABG pH (7.320-7.450) POC ABG pCO2 (32.0-48.0) mmHg POC ABG pO2 (83-108) mmHg ABG Hemoglobin (12.0-17.5) ABG Oxyhemoglobin (94-98) VBG pH (7.320-7.420) Sodium (137-145) mmol/L Potassium (3.6-5.0) mmol/L Chloride (98-107) mmol/L Carbon Dioxide 21 L (22-30) mmol/L BUN 23 H (9-20) mg/dL Creatinine 2.5 H (0.8-1.3) mg/dL Glucose 161 H (75-100) mg/dL POC Glucose 212 H (70-105) mg/dL Hemoglobin A1c (4-6) % Lactic Acid 2.90 H* (0.7-2.0) mmol/L Phosphorus (2.5-4.5) mg/dL Magnesium (1.7-2.3) mg/dL Alkaline Phosphatase (35-129) units/L Total Protein (6.3-8.2) g/dL 01/09/22 01/09/22 01/09/22 Range/Units 02:40 04:31 04:38 WBC (4.5-11.0) K/mm3 RBC (3.65-5.03) M/mm3 Hgb (11.8-15.2) gm/dl Hct (35.5-45.6) % RDW (13.2-15.2) % Seg Neutrophils % (40.0-70.0) % Seg Neutrophils # (1.8-7.7) K/mm3 APTT (24.2-36.6) Sec. ABG pH (7.320-7.450) POC ABG pCO2 (32.0-48.0) mmHg POC ABG pO2 (83-108) mmHg ABG Hemoglobin (12.0-17.5) ABG Oxyhemoglobin (94-98) VBG pH (7.320-7.420) Sodium (137-145) mmol/L Potassium (3.6-5.0) mmol/L Chloride (98-107) mmol/L Carbon Dioxide 20 L (22-30) mmol/L BUN 25 H (9-20) mg/dL Creatinine 2.4 H (0.8-1.3) mg/dL Glucose 175 H (75-100) mg/dL POC Glucose 120 H 175 H (70-105) mg/dL Hemoglobin A1c (4-6) % Lactic Acid (0.7-2.0) mmol/L Phosphorus (2.5-4.5) mg/dL Magnesium (1.7-2.3) mg/dL Alkaline Phosphatase (35-129) units/L Total Protein (6.3-8.2) g/dL 01/09/22 01/09/22 01/09/22 Range/Units 05:31 06:27 07:41 WBC (4.5-11.0) K/mm3 RBC (3.65-5.03) M/mm3 Hgb (11.8-15.2) gm/dl Hct (35.5-45.6) % RDW (13.2-15.2) % Seg Neutrophils % (40.0-70.0) % Seg Neutrophils # (1.8-7.7) K/mm3 APTT (24.2-36.6) Sec. ABG pH (7.320-7.450) POC ABG pCO2 (32.0-48.0) mmHg POC ABG pO2 (83-108) mmHg ABG Hemoglobin (12.0-17.5) ABG Oxyhemoglobin (94-98) VBG pH (7.320-7.420) Sodium (137-145) mmol/L Potassium (3.6-5.0) mmol/L Chloride (98-107) mmol/L Carbon Dioxide (22-30) mmol/L BUN (9-20) mg/dL Creatinine (0.8-1.3) mg/dL Glucose (75-100) mg/dL POC Glucose 201 H 169 H 133 H (70-105) mg/dL Hemoglobin A1c (4-6) % Lactic Acid (0.7-2.0) mmol/L Phosphorus (2.5-4.5) mg/dL Magnesium (1.7-2.3) mg/dL Alkaline Phosphatase (35-129) units/L Total Protein (6.3-8.2) g/dL 01/09/22 01/09/22 01/09/22 Range/Units 08:03 08:17 09:02 WBC (4.5-11.0) K/mm3 RBC (3.65-5.03) M/mm3 Hgb (11.8-15.2) gm/dl Hct (35.5-45.6) % RDW (13.2-15.2) % Seg Neutrophils % (40.0-70.0) % Seg Neutrophils # (1.8-7.7) K/mm3 APTT (24.2-36.6) Sec. ABG pH (7.320-7.450) POC ABG pCO2 (32.0-48.0) mmHg POC ABG pO2 (83-108) mmHg ABG Hemoglobin (12.0-17.5) ABG Oxyhemoglobin (94-98) VBG pH (7.320-7.420) Sodium (137-145) mmol/L Potassium (3.6-5.0) mmol/L Chloride 107.7 H (98-107) mmol/L Carbon Dioxide (22-30) mmol/L BUN 23 H (9-20) mg/dL Creatinine 2.2 H (0.8-1.3) mg/dL Glucose (75-100) mg/dL POC Glucose 131 H 145 H (70-105) mg/dL Hemoglobin A1c (4-6) % Lactic Acid (0.7-2.0) mmol/L Phosphorus (2.5-4.5) mg/dL Magnesium (1.7-2.3) mg/dL Alkaline Phosphatase (35-129) units/L Total Protein (6.3-8.2) g/dL 01/09/22 01/09/22 01/09/22 Range/Units 09:15 09:50 10:44 WBC (4.5-11.0) K/mm3 RBC (3.65-5.03) M/mm3 Hgb (11.8-15.2) gm/dl Hct (35.5-45.6) % RDW (13.2-15.2) % Seg Neutrophils % (40.0-70.0) % Seg Neutrophils # (1.8-7.7) K/mm3 APTT (24.2-36.6) Sec. ABG pH (7.320-7.450) POC ABG pCO2 (32.0-48.0) mmHg POC ABG pO2 80.7 L (83-108) mmHg ABG Hemoglobin (12.0-17.5) ABG Oxyhemoglobin (94-98) VBG pH (7.320-7.420) Sodium (137-145) mmol/L Potassium (3.6-5.0) mmol/L Chloride (98-107) mmol/L Carbon Dioxide (22-30) mmol/L BUN (9-20) mg/dL Creatinine (0.8-1.3) mg/dL Glucose (75-100) mg/dL POC Glucose 140 H 132 H (70-105) mg/dL Hemoglobin A1c (4-6) % Lactic Acid (0.7-2.0) mmol/L Phosphorus (2.5-4.5) mg/dL Magnesium (1.7-2.3) mg/dL Alkaline Phosphatase (35-129) units/L Total Protein (6.3-8.2) g/dL - Imaging and Cardiology Chest x-ray: report reviewed, image reviewed (no pneumonia) Assessment and Plan Cultures: 01/08/2022 blood culture: No growth 01/08/2022 CSF culture: Negative so far. CSF with 0 WBC, 3 RBC, glucose 333, protein 50. A/P: 45-year-old male with hypertension was admitted to the hospital with altered mental status. He was found to have hyperglycemia and hypertension, was combative requiring medications, was subsequently intubated: #SIRS versus sepsis: Febrile with leukocytosis. Chest x-ray without pneumonia, UA without pyuria, CSF with 0 WBC, 3 RBC, glucose 333, protein 50 hence not suggestive of meningitis. Purulent nasal discharge present, but CT without evidence of sinusitis. #Acute encephalopathy: Likely metabolic, severe hyperglycemia on admission #New onset DM #ROLA: Renally adjust antibiotics. Recs: -abx switched to IV Zosyn -f/u cultures and monitor fever d/w Dr. Bermudez and with his at bedside. Liliane Zheng MD, FACP, [facility] ([facility]) O: [phone] F: [phone] C: [phone]
[2022-01-09 12:40] LABS: Microalbumin/Creatinine Ratio 721.1 ug/mg
[2022-01-09] MEDS ORDERED: VANCOMYCIN 1,750 MG in SODIUM CHLORIDE 0.9% 500 ML 500 ML IV SCH (14:00)
[2022-01-09 14:24] LABS: Calcium 8.3 mg/dL (8.4-10.2)
[2022-01-09] MEDS ORDERED: diphenhydrAMINE 50 MG/ML VIAL IV ONE (15:00)
[2022-01-09] MEDS ORDERED: LORazepam 2 MG/ML VIAL IV ONE (15:00)
[2022-01-09] MEDS ORDERED: HALOPERIDOL LACTATE 5 MG/1 ML INJ IV ONE (15:00)
[2022-01-09] MEDS: PIPERACILLIN/TAZOBACTAM 3.375 3.375 GM/50 ML BAG IV SCH ×2 (15:09→21:55)
[2022-01-09] MEDS ORDERED: D5W/0.45% NACL 1,000 ML IV SCH (16:00)
[2022-01-09] MEDS ORDERED: INSULIN GLARGINE 100 UNITS/ML SUB-Q ONE (17:08)
--- NOTE | 2022-01-09 17:36 | Event Note ---
Date: 01/09/22 This is a 46-year-old male with NESHA, HTN, DM who presented to the hospital on 01/09 with complaints of altered mental status via EMS. With EMS patient was combative on scene and received 5 mg Haldol, 50 mg Benadryl, 5 mg Versed prior to arrival and was noted to have significant hypertension and elevated blood glucose of 4 5 with EMS. Patient's family member states that he was complaining of a headache for the past 2 days and was completely normal around 1 PM on 01/08. Of note patient received his Covid booster 2 weeks ago. In the emergency department patient was found to have a blood glucose of 639 and lab work consistent with ROLA and DKA with lactic acidosis. CT scan of his head showed no discrete intracranial abnormality, CXR was clear. LP performed by ED physician patient was admitted to the hospital service with DKA, lactic acidosis and sepsis on an insulin drip, mechanical ventilation as a COVID-19 PUI. Admitted with consults to [facility]. 01/10: Patient was extubated today to BiPAP, COVID-19 PCR negative. Patient started on Precedex. Assessment and plan: This is a 46-year-old male with NESHA, HTN, DM admitted with DKA and acute hypoxic respiratory failure Neuro: Acute metabolic encephalopathy -Sedated with Versed -Changed to fentanyl and propofol -Now stopped due to extubation -Now on Precedex drip -Given Ativan, Haldol, Benadryl -Avoid delirium -Reorientation as needed -Maintain sleep-wake cycle -aspiration/seizure precautions -As needed analgesia -CT head shows no distinct acute intracranial abnormality, no gross evidence of acute cerebral pathology -Bilateral soft restraints for safety Cardiac: h/o HTN -Blood pressure monitoring per protocol -Resume for added antihypertensive regimen as needed Respiratory: Acute hypoxic respiratory failure, h/o OSH -CCM consulted, appreciate recommendations -Intubated on 01/08 with 7.00 ETT at 23 at the lips -A.m. vent settings: Assist-control rate 24, 450, PEEP 6, FiO2 40% -See RT notes for titration -Extubated on 01/09 to BiPAP -A.m. ABG and CXR noted -Pulmonary hygiene -SPO2 monitoring GI: MO -24 hours -33 -PPI -Patient is on continuous BiPAP for now and will remain n.p.o. -BR: Senokot when appropriate : High anion gap metabolic acidosis, hyperchloremia, acute kidney injury -Nephrology consulted, appreciate recommendations -Likely secondary to vasomotor nephropathy -Strict intake and output -Renally dose medications -Avoid nephrotoxic medications -Daily weights -Urine lites pending -Renal ultrasound pending ID: SIRS versus sepsis, r/o meningitis -On admission patient was febrile with leukocytosis -S/p LP in the ED -WBC 0, RBC 3, glucose 333, protein 50, clear -Infectious disease consulted, appreciate recommendation -Antibiotic therapy Zosyn -COVID-19 PCR negative -f/u blood culture -Monitor WBC and temperature curve Endo: DKA. h/o newly diagnosed diabetes mellitus -s/p Insulin drip -Avoid hypoglycemia -SSI -Accu-Cheks q. 6 -Long-acting insulin, titrate as needed -Remains on dextrose fluid as patient is on continuous BiPAP and unable to take p.o. at this time -Hemoglobin A1c 10.2 Heme: Leukocytosis -Trend CBC -Transfuse hemoglobin less than 7 -Monitor for signs of bleeding -SCDs to BLE while in bed -Heparin subcu The high probability of a clinically significant, sudden or life threatening deterioration of the [resp/endo] system(s) required my full and direct attention, intervention and personal management. The aggregate critical care time was [60] minutes. This time is in addition to time spent performing reported procedures but includes the following: [x] Data Review and interpretation [x] Patient assessment and monitoring of vital signs [x] Documentation [x] Medication orders and management
--- NOTE | 2022-01-09 17:52 | Consultation ---
History of Present Illness Consult date: 01/09/22 Requesting physician: BIBI PARKER History of present illness: 46 y/o obese male admitted with altered mental state and found to be in DKA. Al so had fever and leukocytosis. Per ED, intubated secondary to lethargy on admission, however when patient woke up, he became agitated and they (ed) still had work up to complete so they sedated patient more. ABG showed a mixed respiratory and metabolic acidosis with good PaO2. Given his current mental state, ED did not feel comfortable with extubation. Transitioned to ICU for further monitoring. Past History Past Medical History: diabetes, hypertension Social history: other ( denies substance abuse) Family history: other (limited due to vent) Medications and Allergies Allergies Allergy/AdvReac Type Severity Reaction Status Date / Time No Known Allergies Allergy Verified 01/08/22 18:54 Home Medications Medication Instructions Recorded Confirmed Last Taken Type No Known Home Medications [No 01/09/22 01/09/22 Unknown History Reported Home Medications] Active Meds: Active Medications Acetaminophen (Acetaminophen 325 Mg Tab) 650 mg PO Q4H PRN PRN Reason: Pain MILD(1-3)/Fever >100.5/[place] Albuterol (Albuterol 2.5 Mg/3 Ml Nebu) 2.5 mg IH Q3HRT PRN PRN Reason: Shortness Of Breath Albuterol/Ipratropium (Ipratropium/Albuterol Sulfate 3 Ml Ampul.Neb) 1 ampul IH Q6HRT SADAF Dextrose (Dextrose 10% *Hypoglycemia) 0 ml IV PRN PRN; Protocol PRN Reason: Hypoglycemia Dextrose (Dextrose 50% In Water (25gm) 50 Ml Syringe) 50 ml IV Q30MIN PRN; Protocol PRN Reason: Hypoglycemia Famotidine (Famotidine 20 Mg/2 Ml Inj) 10 mg IV BID SADAF Last Admin: 01/09/22 09:34 Dose: 10 mg Hydrophilic Ointment (Lip Therapy Vaseline) 1 applic TP Q2HR PRN PRN Reason: Dry Lips Piperacillin Sod/Tazobactam Sod (Zosyn/Ns 3.375gm/50ml) 3.375 gm in 50 mls @ 100 mls/hr IV Q8H SADAF; Protocol Last Admin: 01/09/22 15:09 Dose: 100 mls/hr Dexmedetomidine HCl 400 mcg/ (Sodium Chloride) 104 mls @ 6.251 mls/hr IV TITRATE SADAF; Protocol Last Admin: 01/09/22 15:27 Dose: 0.2 mcg/kg/hr, 6.251 mls/hr Dextrose/Sodium Chloride (D5/0.45ns) 1,000 mls @ 75 mls/hr IV DIRECT SADAF Insulin Glargine (Insulin Glargine 100 Units/Ml) 15 units SUB-Q QHS SADAF Insulin Human Lispro (Insulin Lispro 100 Unit/Ml) 0 unit SUB-Q Q6HR SADAF; Protocol Ondansetron HCl (Ondansetron 4 Mg/2 Ml Inj) 4 mg IV Q8H PRN PRN Reason: Nausea And Vomiting Sodium Chloride (Sodium Chloride 0.9% 10 Ml Flush Syringe) 10 ml IV BID SADAF Sodium Chloride (Sodium Chloride 0.9% 10 Ml Flush Syringe) 10 ml IV PRN PRN PRN Reason: LINE FLUSH Review of Systems ROS unobtainable: due to endotracheal tube, due to mental status Physical Examination Vital signs: Vital Signs Pulse Resp BP Pulse Ox 130 H 24 235/160 100 01/08/22 18:18 01/08/22 18:18 01/08/22 18:18 01/08/22 18:18 General appearance: asleep, appears uncomfortable, other (morbidly obese) ENT: other (orally intubated) Effort: normal Ascultation: Bilateral: clear Percussion: Bilateral: not dull Tactile fremitus: Bilateral: normal Cardiovascular: regular rate and rhythm Gastrointestinal: normoactive bowel sounds, soft Extremities: no edema Results - Laboratory Findings CBC and BMP: 01/10/22 04:16 01/10/22 04:16 ABG ABG pH 7.365 (7.320-7.450) 01/09/22 09:15 POC ABG pCO2 45.1 mmHg (32.0-48.0) 01/09/22 09:15 POC ABG pO2 80.7 mmHg (83-108) L 01/09/22 09:15 POC ABG HCO3 25.2 01/09/22 09:15 ABG O2 Saturation 96.5 (0-100) 01/09/22 09:15 PT/INR, D-dimer PT 14.6 Sec. (12.2-14.9) 01/08/22 18:58 INR 1.03 (0.87-1.13) 01/08/22 18:58 Abnormal lab findings: Abnormal Labs 01/08/22 01/08/22 01/08/22 18:31 18:58 18:58 WBC 13.6 H RBC 6.06 H Hgb 18.1 H Hct 55.9 H RDW 13.0 L Seg Neutrophils % 81.1 H Seg Neutrophils # 11.0 H APTT ABG pH POC ABG pCO2 POC ABG pO2 ABG Hemoglobin ABG Oxyhemoglobin VBG pH Sodium 134 L Potassium Chloride 89.7 L Carbon Dioxide 18 L BUN Creatinine 1.4 H Glucose 663 H* POC Glucose > 600 H Hemoglobin A1c Lactic Acid Calcium Phosphorus Magnesium Alkaline Phosphatase 216 H Total Protein 8.6 H Urine Creatinine Urine Microalbumin Urine Total Protein 01/08/22 01/08/22 01/08/22 18:58 18:58 18:58 WBC RBC Hgb Hct RDW Seg Neutrophils % Seg Neutrophils # APTT 20.1 L ABG pH POC ABG pCO2 POC ABG pO2 ABG Hemoglobin ABG Oxyhemoglobin VBG pH 7.262 L Sodium Potassium Chloride Carbon Dioxide BUN Creatinine Glucose POC Glucose Hemoglobin A1c Lactic Acid 6.80 H* Calcium Phosphorus Magnesium Alkaline Phosphatase Total Protein Urine Creatinine Urine Microalbumin Urine Total Protein 01/08/22 01/08/22 01/08/22 18:58 20:19 20:43 WBC RBC Hgb Hct RDW Seg Neutrophils % Seg Neutrophils # APTT ABG pH POC ABG pCO2 POC ABG pO2 ABG Hemoglobin ABG Oxyhemoglobin VBG pH Sodium Potassium Chloride Carbon Dioxide BUN Creatinine Glucose POC Glucose > 600 H Hemoglobin A1c 10.2 H Lactic Acid Calcium Phosphorus 7.20 H Magnesium Alkaline Phosphatase Total Protein Urine Creatinine Urine Microalbumin Urine Total Protein 01/08/22 01/08/22 01/08/22 21:05 21:59 22:26 WBC RBC Hgb Hct RDW Seg Neutrophils % Seg Neutrophils # APTT ABG pH 7.269 L POC ABG pCO2 50.5 H POC ABG pO2 402.0 H ABG Hemoglobin 17.6 H ABG Oxyhemoglobin 98.8 H VBG pH Sodium Potassium Chloride Carbon Dioxide BUN Creatinine Glucose POC Glucose > 600 H Hemoglobin A1c Lactic Acid 4.30 H* Calcium Phosphorus Magnesium Alkaline Phosphatase Total Protein Urine Creatinine Urine Microalbumin Urine Total Protein 01/08/22 01/08/22 01/09/22 22:26 23:26 00:32 WBC RBC Hgb Hct RDW Seg Neutrophils % Seg Neutrophils # APTT ABG pH POC ABG pCO2 POC ABG pO2 ABG Hemoglobin ABG Oxyhemoglobin VBG pH Sodium Potassium 5.5 H D Chloride 97.2 L Carbon Dioxide 21 L BUN 22 H Creatinine 1.7 H Glucose 639 H* POC Glucose 507 H 422 H Hemoglobin A1c Lactic Acid Calcium Phosphorus Magnesium Alkaline Phosphatase Total Protein Urine Creatinine Urine Microalbumin Urine Total Protein 01/09/22 01/09/22 01/09/22 00:36 00:36 00:46 WBC RBC Hgb Hct RDW Seg Neutrophils % Seg Neutrophils # APTT ABG pH POC ABG pCO2 POC ABG pO2 ABG Hemoglobin ABG Oxyhemoglobin VBG pH Sodium Potassium Chloride Carbon Dioxide 20 L BUN 22 H Creatinine 1.7 H Glucose 416 H POC Glucose Hemoglobin A1c Lactic Acid 2.80 H* Calcium Phosphorus Magnesium 2.60 H Alkaline Phosphatase Total Protein Urine Creatinine Urine Microalbumin Urine Total Protein 01/09/22 01/09/22 01/09/22 01:35 02:07 02:07 WBC RBC Hgb Hct RDW Seg Neutrophils % Seg Neutrophils # APTT ABG pH POC ABG pCO2 POC ABG pO2 ABG Hemoglobin ABG Oxyhemoglobin VBG pH Sodium Potassium Chloride Carbon Dioxide 21 L BUN 23 H Creatinine 2.5 H Glucose 161 H POC Glucose 212 H Hemoglobin A1c Lactic Acid 2.90 H* Calcium Phosphorus Magnesium Alkaline Phosphatase Total Protein Urine Creatinine Urine Microalbumin Urine Total Protein 01/09/22 01/09/22 01/09/22 02:40 04:31 04:38 WBC RBC Hgb Hct RDW Seg Neutrophils % Seg Neutrophils # APTT ABG pH POC ABG pCO2 POC ABG pO2 ABG Hemoglobin ABG Oxyhemoglobin VBG pH Sodium Potassium Chloride Carbon Dioxide 20 L BUN 25 H Creatinine 2.4 H Glucose 175 H POC Glucose 120 H 175 H Hemoglobin A1c Lactic Acid Calcium Phosphorus Magnesium Alkaline Phosphatase Total Protein Urine Creatinine Urine Microalbumin Urine Total Protein 01/09/22 01/09/22 01/09/22 05:31 06:27 07:41 WBC RBC Hgb Hct RDW Seg Neutrophils % Seg Neutrophils # APTT ABG pH POC ABG pCO2 POC ABG pO2 ABG Hemoglobin ABG Oxyhemoglobin VBG pH Sodium Potassium Chloride Carbon Dioxide BUN Creatinine Glucose POC Glucose 201 H 169 H 133 H Hemoglobin A1c Lactic Acid Calcium Phosphorus Magnesium Alkaline Phosphatase Total Protein Urine Creatinine Urine Microalbumin Urine Total Protein 01/09/22 01/09/22 01/09/22 08:03 08:17 09:02 WBC RBC Hgb Hct RDW Seg Neutrophils % Seg Neutrophils # APTT ABG pH POC ABG pCO2 POC ABG pO2 ABG Hemoglobin ABG Oxyhemoglobin VBG pH Sodium Potassium Chloride 107.7 H Carbon Dioxide BUN 23 H Creatinine 2.2 H Glucose POC Glucose 131 H 145 H Hemoglobin A1c Lactic Acid Calcium Phosphorus Magnesium Alkaline Phosphatase Total Protein Urine Creatinine Urine Microalbumin Urine Total Protein 01/09/22 01/09/22 01/09/22 09:15 09:50 10:44 WBC RBC Hgb Hct RDW Seg Neutrophils % Seg Neutrophils # APTT ABG pH POC ABG pCO2 POC ABG pO2 80.7 L ABG Hemoglobin ABG Oxyhemoglobin VBG pH Sodium Potassium Chloride Carbon Dioxide BUN Creatinine Glucose POC Glucose 140 H 132 H Hemoglobin A1c Lactic Acid Calcium Phosphorus Magnesium Alkaline Phosphatase Total Protein Urine Creatinine Urine Microalbumin Urine Total Protein 01/09/22 01/09/22 01/09/22 13:36 14:18 16:25 WBC RBC Hgb Hct RDW Seg Neutrophils % Seg Neutrophils # APTT ABG pH POC ABG pCO2 POC ABG pO2 ABG Hemoglobin ABG Oxyhemoglobin VBG pH Sodium Potassium Chloride 110.4 H Carbon Dioxide 20 L BUN 21 H Creatinine 1.8 H Glucose 164 H POC Glucose 166 H 115 H Hemoglobin A1c Lactic Acid Calcium 8.3 L Phosphorus Magnesium Alkaline Phosphatase Total Protein Urine Creatinine Urine Microalbumin Urine Total Protein 01/09/22 01/09/22 16:50 Unknown WBC RBC Hgb Hct RDW Seg Neutrophils % Seg Neutrophils # APTT ABG pH POC ABG pCO2 POC ABG pO2 ABG Hemoglobin ABG Oxyhemoglobin VBG pH Sodium Potassium Chloride Carbon Dioxide BUN Creatinine Glucose POC Glucose 120 H Hemoglobin A1c Lactic Acid Calcium Phosphorus Magnesium Alkaline Phosphatase Total Protein Urine Creatinine 151.0 H Urine Microalbumin 108.9 H Urine Total Protein 183 H - Diagnostic Findings Chest x-ray: image reviewed Assessment and Plan 46 y/o obese male with known NESHA, admitted with DKA and altered mental status. 1. Continue insulin drip. If extubated and able to tolerate PO then can switch to long acting insulin 2. Turn all sedation and off and attempt extubation 3. Bipap available for PRN and QHS, have asked to bring in his machine from home 4. Maybe stable for transfer later today 5. Diabetic education and lifestyle changes CCT 31 minutes.
[2022-01-09 19:25] LABS: Calcium 8.1 mg/dL (8.4-10.2)
[2022-01-09] MEDS: INSULIN LISPRO 100 UNIT/ML SUB-Q SCH ×2 (19:54→23:34)
[2022-01-09] MEDS: IPRATROPIUM/ALBUTEROL SULFATE 3 ML AMPUL.NEB IH SCH ×2 (20:59→21:56)
[2022-01-09] MEDS ORDERED: INSULIN GLARGINE 100 UNITS/ML SUB-Q SCH (22:00)
[2022-01-10] MEDS: IPRATROPIUM/ALBUTEROL SULFATE 3 ML AMPUL.NEB IH SCH ×3 (02:00→22:14)
[2022-01-10 05:01] LABS: Basophils # (Auto) 0.1 K/mm3 (0.0-0.1); Eosinophils % (Auto) 0.3 % (0.0-4.3); Hematocrit 45.3 % (35.5-45.6); Hemoglobin 14.5 gm/dl (11.8-15.2); Lymphocytes # (Auto) 2.5 K/mm3 (1.2-5.4); Lymphocytes % (Auto) 18.9 % (13.4-35.0); Mean Corpuscular HGB Conc 32 % (32-34); Mean Corpuscular Volume 93 fl (84-94); Monocytes # (Auto) 1.2 K/mm3 (0.0-0.8); Monocytes % (Auto) 8.9 % (0.0-7.3); Platelet Count 114 K/mm3 (140-440); Red Cell Distribution Width 12.9 % (13.2-15.2)
[2022-01-10] MEDS: PIPERACILLIN/TAZOBACTAM 3.375 3.375 GM/50 ML BAG IV SCH ×3 (05:07→23:00)
[2022-01-10 05:13] LABS: BUN/Creatinine Ratio 14; Blood Urea Nitrogen 18 mg/dL (9-20); Calcium 8.3 mg/dL (8.4-10.2); Hemolysis Index 17
[2022-01-10] MEDS: INSULIN LISPRO 100 UNIT/ML SUB-Q SCH ×3 (05:16→17:23)
[2022-01-10] MEDS: FAMOTIDINE 20 MG/2 ML INJ IV SCH (09:56)
--- NOTE | 2022-01-10 09:58 | Progress Note ---
Assessment and Plan (1) Acute renal failure (2) Acute respiratory failure (3) DKA (diabetic ketoacidosis) (4) Hypertensive emergency (5) New onset type 1 diabetes mellitus, uncontrolled (6) Sepsis Unknown baseline kidney function, possible 2/2 DM ROLA possibly secondary to ischemic ATN Cr slightly down, monitor. ordered renal US Has some proteinuria, likely from DM. 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 making urine. Objective - Exam Narrative Exam: eneral appearance: Present: no acute distress, well-nourished - EENT Eyes: Present: PERRL ENT: hearing intact, clear oral mucosa - Neck Neck: Present: supple, normal ROM - Respiratory Respiratory effort: normal Respiratory: bilateral: diminished - Cardiovascular Heart Sounds: Present: S1 & S2. Absent: rub, click - Extremities Extremities: pulses symmetrical, No edema Peripheral Pulses: within normal limits - Abdominal General gastrointestinal: Present: soft, non-tender, non-distended, normal bowel sounds Male genitourinary: Present: normal - Integumentary Integumentary: Present: clear, warm, dry - Musculoskeletal Musculoskeletal: gait normal, strength equal bilaterally - Psychiatric Psychiatric: other (Patient is on vent) - Neurologic Neurologic: CNII-XII intact, moves all extremities, other (Patient is on vent) - Vital Signs Vital signs: Vital Signs - 12hr 01/09/22 01/09/22 01/09/22 22:00 22:11 22:21 Temperature Pulse Rate 82 85 85 Pulse Rate [ Bilateral] Respiratory 23 13 22 Rate Blood Pressure 119/77 119/77 119/77 O2 Sat by Pulse 95 93 98 Oximetry 01/09/22 01/09/22 01/09/22 22:22 22:31 22:41 Temperature Pulse Rate 84 85 85 Pulse Rate [ Bilateral] Respiratory 23 23 Rate Blood Pressure 119/77 119/77 O2 Sat by Pulse 99 99 Oximetry 01/09/22 01/09/22 01/09/22 22:51 23:01 23:11 Temperature Pulse Rate 89 87 96 H Pulse Rate [ Bilateral] Respiratory 12 22 13 Rate Blood Pressure 119/77 99/64 99/64 O2 Sat by Pulse 99 97 94 Oximetry 01/09/22 01/09/22 01/09/22 23:21 23:27 23:31 Temperature Pulse Rate 85 80 Pulse Rate [ Bilateral] Respiratory 17 28 H 25 H Rate Blood Pressure 99/64 99/64 99/64 O2 Sat by Pulse 97 96 97 Oximetry 01/09/22 01/09/22 01/09/22 23:36 23:41 23:51 Temperature 101.5 F H Pulse Rate 80 78 Pulse Rate [ Bilateral] Respiratory 28 H 29 H Rate Blood Pressure 99/64 99/64 O2 Sat by Pulse 97 98 Oximetry 01/10/22 01/10/22 01/10/22 00:00 00:11 00:21 Temperature Pulse Rate 76 74 72 Pulse Rate [ Bilateral] Respiratory 29 H 27 H 27 H Rate Blood Pressure 142/80 142/80 142/80 O2 Sat by Pulse 93 98 98 Oximetry 01/10/22 01/10/22 01/10/22 00:31 00:41 00:51 Temperature Pulse Rate 70 72 71 Pulse Rate [ Bilateral] Respiratory 28 H 26 H 27 H Rate Blood Pressure 142/80 142/80 142/80 O2 Sat by Pulse 98 97 98 Oximetry 01/10/22 01/10/22 01/10/22 01:00 01:08 01:11 Temperature 99.3 F Pulse Rate 71 70 Pulse Rate [ Bilateral] Respiratory 26 H 26 H Rate Blood Pressure 128/70 128/70 O2 Sat by Pulse 94 98 Oximetry 01/10/22 01/10/22 01/10/22 01:21 01:31 01:41 Temperature Pulse Rate 69 69 69 Pulse Rate [ Bilateral] Respiratory 28 H 28 H 27 H Rate Blood Pressure 128/70 128/70 128/70 O2 Sat by Pulse 98 99 99 Oximetry 01/10/22 01/10/22 01/10/22 01:45 01:47 01:51 Temperature Pulse Rate 68 70 68 Pulse Rate [ Bilateral] Respiratory 27 H 20 Rate Blood Pressure 128/70 128/70 O2 Sat by Pulse 99 99 Oximetry 01/10/22 01/10/22 01/10/22 02:00 02:11 02:21 Temperature Pulse Rate 67 67 65 Pulse Rate [ Bilateral] Respiratory 24 28 H 25 H Rate Blood Pressure 138/79 138/79 138/79 O2 Sat by Pulse 94 99 99 Oximetry 01/10/22 01/10/22 01/10/22 02:31 02:41 02:51 Temperature Pulse Rate 66 66 64 Pulse Rate [ Bilateral] Respiratory 25 H 27 H 28 H Rate Blood Pressure 138/79 138/79 138/79 O2 Sat by Pulse 99 99 98 Oximetry 01/10/22 01/10/22 01/10/22 03:00 03:11 03:21 Temperature Pulse Rate 64 64 63 Pulse Rate [ Bilateral] Respiratory 21 28 H 28 H Rate Blood Pressure 143/83 143/83 143/83 O2 Sat by Pulse 92 97 98 Oximetry 01/10/22 01/10/22 01/10/22 03:31 03:34 03:41 Temperature 100.8 F H Pulse Rate 64 62 Pulse Rate [ Bilateral] Respiratory 27 H 20 Rate Blood Pressure 143/83 143/83 O2 Sat by Pulse 98 98 Oximetry 01/10/22 01/10/22 01/10/22 03:51 04:00 04:11 Temperature Pulse Rate 63 63 62 Pulse Rate [ Bilateral] Respiratory 24 26 H 22 Rate Blood Pressure 143/83 150/90 150/90 O2 Sat by Pulse 98 93 98 Oximetry 01/10/22 01/10/22 01/10/22 04:21 04:31 04:41 Temperature Pulse Rate 62 62 62 Pulse Rate [ Bilateral] Respiratory 16 18 22 Rate Blood Pressure 150/90 150/90 150/90 O2 Sat by Pulse 98 99 99 Oximetry 01/10/22 01/10/22 01/10/22 04:51 05:00 05:11 Temperature Pulse Rate 63 62 61 Pulse Rate [ Bilateral] Respiratory 24 19 20 Rate Blood Pressure 150/90 153/93 153/93 O2 Sat by Pulse 99 95 99 Oximetry 01/10/22 01/10/22 01/10/22 05:21 05:31 05:41 Temperature Pulse Rate 60 61 61 Pulse Rate [ Bilateral] Respiratory 18 21 26 H Rate Blood Pressure 153/93 153/93 153/93 O2 Sat by Pulse 99 99 99 Oximetry 01/10/22 01/10/22 01/10/22 05:51 06:00 06:11 Temperature Pulse Rate 62 59 L 59 L Pulse Rate [ Bilateral] Respiratory 28 H 23 23 Rate Blood Pressure 153/93 148/93 148/93 O2 Sat by Pulse 99 92 99 Oximetry 01/10/22 01/10/22 01/10/22 06:21 06:31 06:41 Temperature Pulse Rate 58 L 58 L 58 L Pulse Rate [ Bilateral] Respiratory 18 19 23 Rate Blood Pressure 148/93 148/93 148/93 O2 Sat by Pulse 99 99 99 Oximetry 01/10/22 01/10/22 01/10/22 06:51 07:00 07:11 Temperature Pulse Rate 57 L 57 L 58 L Pulse Rate [ Bilateral] Respiratory 15 24 19 Rate Blood Pressure 148/93 149/98 149/98 O2 Sat by Pulse 99 93 99 Oximetry 01/10/22 01/10/22 01/10/22 07:21 07:31 07:41 Temperature Pulse Rate 56 L 57 L 59 L Pulse Rate [ Bilateral] Respiratory 25 H 23 16 Rate Blood Pressure 149/98 149/98 149/98 O2 Sat by Pulse 98 99 92 Oximetry 01/10/22 01/10/22 01/10/22 07:51 07:55 08:00 Temperature Pulse Rate 57 L 58 L Pulse Rate [ 59 L Bilateral] Respiratory 24 16 Rate Blood Pressure 149/98 133/88 O2 Sat by Pulse 98 89 Oximetry 01/10/22 01/10/22 01/10/22 08:11 08:21 08:31 Temperature Pulse Rate 60 59 L 57 L Pulse Rate [ Bilateral] Respiratory 29 H 27 H 27 H Rate Blood Pressure 133/88 133/88 133/88 O2 Sat by Pulse 93 94 92 Oximetry 01/10/22 01/10/22 01/10/22 08:41 08:51 09:00 Temperature 98.8 F Pulse Rate 59 L 60 Pulse Rate [ Bilateral] Respiratory 14 29 H Rate Blood Pressure 133/88 133/88 O2 Sat by Pulse 96 95 Oximetry - Lab 01/10/22 04:16 01/10/22 04:16 Most recent lab results ABG pH 7.365 (7.320-7.450) 01/09/22 09:15 ABG O2 Saturation 96.5 (0-100) 01/09/22 09:15 Calcium 8.3 mg/dL (8.4-10.2) L 01/10/22 04:16 Phosphorus 4.20 mg/dL (2.5-4.5) D 01/09/22 00:46 Magnesium 2.60 mg/dL (1.7-2.3) H 01/09/22 00:46 Urine Creatinine 151.0 mg/dL (0.1-20.0) H 01/09/22 Unknown Urine Sodium 23 mmol/L 01/09/22 Unknown Urine Total Protein 183 mg/dL (5-11.8) H 01/09/22 Unknown Medications & Allergies - Medications Allergies/Adverse Reactions: Allergies No Known Allergies Allergy (Verified 01/08/22 18:54) Home Medications: Home Medications Medication Instructions Recorded Confirmed Last Taken Type RX: No Known Home Medications [No 01/09/22 01/09/22 Unknown History Reported Home Medications] Active Medications: Generic Name Dose Route Start Last Admin Trade Name Freq PRN Reason Stop Dose Admin Acetaminophen 650 mg 01/09/22 00:34 Acetaminophen 325 Mg Tab PO Q4H PRN Pain MILD(1-3)/Fever >100.5/[place] Albuterol 2.5 mg 01/09/22 00:34 Albuterol 2.5 Mg/3 Ml Nebu IH Q3HRT PRN Shortness Of Breath Dextrose 0 ml 01/09/22 00:54 Dextrose 10% *Hypoglycemia IV PRN PRN Hypoglycemia Protocol Dextrose 50 ml 01/09/22 15:06 Dextrose 50% In Water (25gm) 50 Ml Syringe IV Q30MIN PRN Hypoglycemia Protocol Famotidine 10 mg 01/09/22 10:00 01/09/22 21:56 Famotidine 20 Mg/2 Ml Inj IV 10 mg BID SADAF Administration Hydrophilic Ointment 1 applic 01/08/22 18:59 Lip Therapy Vaseline TP Q2HR PRN Dry Lips Piperacillin Sod/Tazobactam Sod 3.375 gm in 50 mls @ 100 mls/hr 01/09/22 13:00 01/10/22 05:07 Zosyn/Ns 3.375gm/50ml IV 100 mls/hr Q8H SADAF Administration Protocol Dexmedetomidine HCl 400 mcg/ 104 mls @ 6.251 mls/hr 01/09/22 15:00 01/10/22 08:55 Sodium Chloride IV 1.4 mcg/kg/hr TITRATE SADAF 43.754 mls/hr Administration Protocol 0.2 MCG/KG/HR Dextrose/Sodium Chloride 1,000 mls @ 75 mls/hr 01/09/22 16:00 01/09/22 21:55 D5/0.45ns IV 75 mls/hr DIRECT SADAF Administration Insulin Glargine 20 units 01/10/22 10:00 Insulin Glargine 100 Units/Ml SUB-Q QAM SADAF Insulin Human Lispro 0 unit 01/09/22 18:00 01/10/22 05:16 Insulin Lispro 100 Unit/Ml SUB-Q 6 unit Q6HR SADAF Administration Protocol Ondansetron HCl 4 mg 01/09/22 00:34 Ondansetron 4 Mg/2 Ml Inj IV Q8H PRN Nausea And Vomiting Sodium Chloride 10 ml 01/09/22 10:00 01/09/22 21:56 Sodium Chloride 0.9% 10 Ml Flush Syringe IV 10 ml BID SADAF Administration Sodium Chloride 10 ml 01/09/22 00:34 Sodium Chloride 0.9% 10 Ml Flush Syringe IV PRN PRN LINE FLUSH
[2022-01-10] MEDS: INSULIN GLARGINE 100 UNITS/ML SUB-Q SCH (10:12)
--- NOTE | 2022-01-10 11:15 | Progress Note ---
Assessment and Plan 46 y/o obese male with known NESHA, admitted with DKA and altered mental status. 01/10/22: Feed patient. Transitioned off drip. Will add scheduled seroquel but if not swallowing pills would do scheduled haldol. Also should give some PRN ativan as well. Once weaned off precedex, stable for floor. 1. Continue insulin drip. If extubated and able to tolerate PO then can switch to long acting insulin 2. Turn all sedation and off and attempt extubation 3. Bipap available for PRN and QHS, have asked to bring in his machine from home 4. Maybe stable for transfer later today 5. Diabetic education and lifestyle changes CCT 31 minutes. Subjective Date of service: 01/10/22 Interval history: Had some increased agitation post extubation. REquired precedex drip. Still on this am. Alert but still confused. Objective Vital Signs - 12hr 01/09/22 01/09/22 01/09/22 23:21 23:27 23:31 Temperature Pulse Rate 85 80 Pulse Rate [ Bilateral] Respiratory 17 28 H 25 H Rate Blood Pressure 99/64 99/64 99/64 O2 Sat by Pulse 97 96 97 Oximetry 01/09/22 01/09/22 01/09/22 23:36 23:41 23:51 Temperature 101.5 F H Pulse Rate 80 78 Pulse Rate [ Bilateral] Respiratory 28 H 29 H Rate Blood Pressure 99/64 99/64 O2 Sat by Pulse 97 98 Oximetry 01/10/22 01/10/22 01/10/22 00:00 00:11 00:21 Temperature Pulse Rate 76 74 72 Pulse Rate [ Bilateral] Respiratory 29 H 27 H 27 H Rate Blood Pressure 142/80 142/80 142/80 O2 Sat by Pulse 93 98 98 Oximetry 01/10/22 01/10/22 01/10/22 00:31 00:41 00:51 Temperature Pulse Rate 70 72 71 Pulse Rate [ Bilateral] Respiratory 28 H 26 H 27 H Rate Blood Pressure 142/80 142/80 142/80 O2 Sat by Pulse 98 97 98 Oximetry 01/10/22 01/10/22 01/10/22 01:00 01:08 01:11 Temperature 99.3 F Pulse Rate 71 70 Pulse Rate [ Bilateral] Respiratory 26 H 26 H Rate Blood Pressure 128/70 128/70 O2 Sat by Pulse 94 98 Oximetry 01/10/22 01/10/22 01/10/22 01:21 01:31 01:41 Temperature Pulse Rate 69 69 69 Pulse Rate [ Bilateral] Respiratory 28 H 28 H 27 H Rate Blood Pressure 128/70 128/70 128/70 O2 Sat by Pulse 98 99 99 Oximetry 01/10/22 01/10/22 01/10/22 01:45 01:47 01:51 Temperature Pulse Rate 68 70 68 Pulse Rate [ Bilateral] Respiratory 27 H 20 Rate Blood Pressure 128/70 128/70 O2 Sat by Pulse 99 99 Oximetry 01/10/22 01/10/22 01/10/22 02:00 02:11 02:21 Temperature Pulse Rate 67 67 65 Pulse Rate [ Bilateral] Respiratory 24 28 H 25 H Rate Blood Pressure 138/79 138/79 138/79 O2 Sat by Pulse 94 99 99 Oximetry 01/10/22 01/10/22 01/10/22 02:31 02:41 02:51 Temperature Pulse Rate 66 66 64 Pulse Rate [ Bilateral] Respiratory 25 H 27 H 28 H Rate Blood Pressure 138/79 138/79 138/79 O2 Sat by Pulse 99 99 98 Oximetry 01/10/22 01/10/22 01/10/22 03:00 03:11 03:21 Temperature Pulse Rate 64 64 63 Pulse Rate [ Bilateral] Respiratory 21 28 H 28 H Rate Blood Pressure 143/83 143/83 143/83 O2 Sat by Pulse 92 97 98 Oximetry 01/10/22 01/10/22 01/10/22 03:31 03:34 03:41 Temperature 100.8 F H Pulse Rate 64 62 Pulse Rate [ Bilateral] Respiratory 27 H 20 Rate Blood Pressure 143/83 143/83 O2 Sat by Pulse 98 98 Oximetry 01/10/22 01/10/22 01/10/22 03:51 04:00 04:11 Temperature Pulse Rate 63 63 62 Pulse Rate [ Bilateral] Respiratory 24 26 H 22 Rate Blood Pressure 143/83 150/90 150/90 O2 Sat by Pulse 98 93 98 Oximetry 01/10/22 01/10/22 01/10/22 04:21 04:31 04:41 Temperature Pulse Rate 62 62 62 Pulse Rate [ Bilateral] Respiratory 16 18 22 Rate Blood Pressure 150/90 150/90 150/90 O2 Sat by Pulse 98 99 99 Oximetry 01/10/22 01/10/22 01/10/22 04:51 05:00 05:11 Temperature Pulse Rate 63 62 61 Pulse Rate [ Bilateral] Respiratory 24 19 20 Rate Blood Pressure 150/90 153/93 153/93 O2 Sat by Pulse 99 95 99 Oximetry 01/10/22 01/10/22 01/10/22 05:21 05:31 05:41 Temperature Pulse Rate 60 61 61 Pulse Rate [ Bilateral] Respiratory 18 21 26 H Rate Blood Pressure 153/93 153/93 153/93 O2 Sat by Pulse 99 99 99 Oximetry 01/10/22 01/10/22 01/10/22 05:51 06:00 06:11 Temperature Pulse Rate 62 59 L 59 L Pulse Rate [ Bilateral] Respiratory 28 H 23 23 Rate Blood Pressure 153/93 148/93 148/93 O2 Sat by Pulse 99 92 99 Oximetry 01/10/22 01/10/22 01/10/22 06:21 06:31 06:41 Temperature Pulse Rate 58 L 58 L 58 L Pulse Rate [ Bilateral] Respiratory 18 19 23 Rate Blood Pressure 148/93 148/93 148/93 O2 Sat by Pulse 99 99 99 Oximetry 01/10/22 01/10/22 01/10/22 06:51 07:00 07:11 Temperature Pulse Rate 57 L 57 L 58 L Pulse Rate [ Bilateral] Respiratory 15 24 19 Rate Blood Pressure 148/93 149/98 149/98 O2 Sat by Pulse 99 93 99 Oximetry 01/10/22 01/10/22 01/10/22 07:21 07:31 07:41 Temperature Pulse Rate 56 L 57 L 59 L Pulse Rate [ Bilateral] Respiratory 25 H 23 16 Rate Blood Pressure 149/98 149/98 149/98 O2 Sat by Pulse 98 99 92 Oximetry 01/10/22 01/10/22 01/10/22 07:51 07:55 08:00 Temperature Pulse Rate 57 L 58 L Pulse Rate [ 59 L Bilateral] Respiratory 24 16 Rate Blood Pressure 149/98 133/88 O2 Sat by Pulse 98 89 Oximetry 01/10/22 01/10/22 01/10/22 08:11 08:21 08:31 Temperature Pulse Rate 60 59 L 57 L Pulse Rate [ Bilateral] Respiratory 29 H 27 H 27 H Rate Blood Pressure 133/88 133/88 133/88 O2 Sat by Pulse 93 94 92 Oximetry 01/10/22 01/10/22 01/10/22 08:41 08:51 09:00 Temperature 98.8 F Pulse Rate 59 L 60 Pulse Rate [ Bilateral] Respiratory 14 29 H Rate Blood Pressure 133/88 133/88 O2 Sat by Pulse 96 95 Oximetry Constitutional: asleep, appears uncomfortable, other (morbidly obese) ENT: other (orally intubated) Effort: normal Ascultation: Bilateral: clear Percussion: Bilateral: not dull Tactile fremitus: Bilateral: normal Cardiovascular: regular rate and rhythm Gastrointestinal: normoactive bowel sounds, soft Extremities: no edema CBC and BMP: 01/10/22 04:16 01/10/22 04:16 ABG, PT/INR, D-dimer: ABG ABG pH 7.365 (7.320-7.450) 01/09/22 09:15 POC ABG pCO2 45.1 mmHg (32.0-48.0) 01/09/22 09:15 POC ABG pO2 80.7 mmHg (83-108) L 01/09/22 09:15 POC ABG HCO3 25.2 01/09/22 09:15 ABG O2 Saturation 96.5 (0-100) 01/09/22 09:15 PT/INR, D-dimer PT 14.6 Sec. (12.2-14.9) 01/08/22 18:58 INR 1.03 (0.87-1.13) 01/08/22 18:58 Abnormal lab findings: Abnormal Labs 01/08/22 01/08/22 01/08/22 18:31 18:58 18:58 WBC 13.6 H RBC 6.06 H Hgb 18.1 H Hct 55.9 H RDW 13.0 L Plt Count [place] % (Auto) [place] # (Auto) Seg Neutrophils % 81.1 H Seg Neutrophils # 11.0 H APTT ABG pH POC ABG pCO2 POC ABG pO2 ABG Hemoglobin ABG Oxyhemoglobin VBG pH Sodium 134 L Potassium Chloride 89.7 L Carbon Dioxide 18 L BUN Creatinine 1.4 H Glucose 663 H* POC Glucose > 600 H Hemoglobin A1c Lactic Acid Calcium Phosphorus Magnesium Alkaline Phosphatase 216 H Total Protein 8.6 H Urine Creatinine Urine Microalbumin Urine Total Protein 01/08/22 01/08/22 01/08/22 18:58 18:58 18:58 WBC RBC Hgb Hct RDW Plt Count [place] % (Auto) [place] # (Auto) Seg Neutrophils % Seg Neutrophils # APTT 20.1 L ABG pH POC ABG pCO2 POC ABG pO2 ABG Hemoglobin ABG Oxyhemoglobin VBG pH 7.262 L Sodium Potassium Chloride Carbon Dioxide BUN Creatinine Glucose POC Glucose Hemoglobin A1c Lactic Acid 6.80 H* Calcium Phosphorus Magnesium Alkaline Phosphatase Total Protein Urine Creatinine Urine Microalbumin Urine Total Protein 01/08/22 01/08/22 01/08/22 18:58 20:19 20:43 WBC RBC Hgb Hct RDW Plt Count [place] % (Auto) [place] # (Auto) Seg Neutrophils % Seg Neutrophils # APTT ABG pH POC ABG pCO2 POC ABG pO2 ABG Hemoglobin ABG Oxyhemoglobin VBG pH Sodium Potassium Chloride Carbon Dioxide BUN Creatinine Glucose POC Glucose > 600 H Hemoglobin A1c 10.2 H Lactic Acid Calcium Phosphorus 7.20 H Magnesium Alkaline Phosphatase Total Protein Urine Creatinine Urine Microalbumin Urine Total Protein 01/08/22 01/08/22 01/08/22 21:05 21:59 22:26 WBC RBC Hgb Hct RDW Plt Count [place] % (Auto) [place] # (Auto) Seg Neutrophils % Seg Neutrophils # APTT ABG pH 7.269 L POC ABG pCO2 50.5 H POC ABG pO2 402.0 H ABG Hemoglobin 17.6 H ABG Oxyhemoglobin 98.8 H VBG pH Sodium Potassium Chloride Carbon Dioxide BUN Creatinine Glucose POC Glucose > 600 H Hemoglobin A1c Lactic Acid 4.30 H* Calcium Phosphorus Magnesium Alkaline Phosphatase Total Protein Urine Creatinine Urine Microalbumin Urine Total Protein 01/08/22 01/08/22 01/09/22 22:26 23:26 00:32 WBC RBC Hgb Hct RDW Plt Count [place] % (Auto) [place] # (Auto) Seg Neutrophils % Seg Neutrophils # APTT ABG pH POC ABG pCO2 POC ABG pO2 ABG Hemoglobin ABG Oxyhemoglobin VBG pH Sodium Potassium 5.5 H D Chloride 97.2 L Carbon Dioxide 21 L BUN 22 H Creatinine 1.7 H Glucose 639 H* POC Glucose 507 H 422 H Hemoglobin A1c Lactic Acid Calcium Phosphorus Magnesium Alkaline Phosphatase Total Protein Urine Creatinine Urine Microalbumin Urine Total Protein 01/09/22 01/09/22 01/09/22 00:36 00:36 00:46 WBC RBC Hgb Hct RDW Plt Count [place] % (Auto) [place] # (Auto) Seg Neutrophils % Seg Neutrophils # APTT ABG pH POC ABG pCO2 POC ABG pO2 ABG Hemoglobin ABG Oxyhemoglobin VBG pH Sodium Potassium Chloride Carbon Dioxide 20 L BUN 22 H Creatinine 1.7 H Glucose 416 H POC Glucose Hemoglobin A1c Lactic Acid 2.80 H* Calcium Phosphorus Magnesium 2.60 H Alkaline Phosphatase Total Protein Urine Creatinine Urine Microalbumin Urine Total Protein 01/09/22 01/09/22 01/09/22 01:35 02:07 02:07 WBC RBC Hgb Hct RDW Plt Count [place] % (Auto) [place] # (Auto) Seg Neutrophils % Seg Neutrophils # APTT ABG pH POC ABG pCO2 POC ABG pO2 ABG Hemoglobin ABG Oxyhemoglobin VBG pH Sodium Potassium Chloride Carbon Dioxide 21 L BUN 23 H Creatinine 2.5 H Glucose 161 H POC Glucose 212 H Hemoglobin A1c Lactic Acid 2.90 H* Calcium Phosphorus Magnesium Alkaline Phosphatase Total Protein Urine Creatinine Urine Microalbumin Urine Total Protein 01/09/22 01/09/22 01/09/22 02:40 04:31 04:38 WBC RBC Hgb Hct RDW Plt Count [place] % (Auto) [place] # (Auto) Seg Neutrophils % Seg Neutrophils # APTT ABG pH POC ABG pCO2 POC ABG pO2 ABG Hemoglobin ABG Oxyhemoglobin VBG pH Sodium Potassium Chloride Carbon Dioxide 20 L BUN 25 H Creatinine 2.4 H Glucose 175 H POC Glucose 120 H 175 H Hemoglobin A1c Lactic Acid Calcium Phosphorus Magnesium Alkaline Phosphatase Total Protein Urine Creatinine Urine Microalbumin Urine Total Protein 01/09/22 01/09/22 01/09/22 05:31 06:27 07:41 WBC RBC Hgb Hct RDW Plt Count [place] % (Auto) [place] # (Auto) Seg Neutrophils % Seg Neutrophils # APTT ABG pH POC ABG pCO2 POC ABG pO2 ABG Hemoglobin ABG Oxyhemoglobin VBG pH Sodium Potassium Chloride Carbon Dioxide BUN Creatinine Glucose POC Glucose 201 H 169 H 133 H Hemoglobin A1c Lactic Acid Calcium Phosphorus Magnesium Alkaline Phosphatase Total Protein Urine Creatinine Urine Microalbumin Urine Total Protein 01/09/22 01/09/22 01/09/22 08:03 08:17 09:02 WBC RBC Hgb Hct RDW Plt Count [place] % (Auto) [place] # (Auto) Seg Neutrophils % Seg Neutrophils # APTT ABG pH POC ABG pCO2 POC ABG pO2 ABG Hemoglobin ABG Oxyhemoglobin VBG pH Sodium Potassium Chloride 107.7 H Carbon Dioxide BUN 23 H Creatinine 2.2 H Glucose POC Glucose 131 H 145 H Hemoglobin A1c Lactic Acid Calcium Phosphorus Magnesium Alkaline Phosphatase Total Protein Urine Creatinine Urine Microalbumin Urine Total Protein 01/09/22 01/09/22 01/09/22 09:15 09:50 10:44 WBC RBC Hgb Hct RDW Plt Count [place] % (Auto) [place] # (Auto) Seg Neutrophils % Seg Neutrophils # APTT ABG pH POC ABG pCO2 POC ABG pO2 80.7 L ABG Hemoglobin ABG Oxyhemoglobin VBG pH Sodium Potassium Chloride Carbon Dioxide BUN Creatinine Glucose POC Glucose 140 H 132 H Hemoglobin A1c Lactic Acid Calcium Phosphorus Magnesium Alkaline Phosphatase Total Protein Urine Creatinine Urine Microalbumin Urine Total Protein 01/09/22 01/09/22 01/09/22 13:36 14:18 16:25 WBC RBC Hgb Hct RDW Plt Count [place] % (Auto) [place] # (Auto) Seg Neutrophils % Seg Neutrophils # APTT ABG pH POC ABG pCO2 POC ABG pO2 ABG Hemoglobin ABG Oxyhemoglobin VBG pH Sodium Potassium Chloride 110.4 H Carbon Dioxide 20 L BUN 21 H Creatinine 1.8 H Glucose 164 H POC Glucose 166 H 115 H Hemoglobin A1c Lactic Acid Calcium 8.3 L Phosphorus Magnesium Alkaline Phosphatase Total Protein Urine Creatinine Urine Microalbumin Urine Total Protein 01/09/22 01/09/22 01/09/22 16:50 18:04 21:31 WBC RBC Hgb Hct RDW Plt Count [place] % (Auto) [place] # (Auto) Seg Neutrophils % Seg Neutrophils # APTT ABG pH POC ABG pCO2 POC ABG pO2 ABG Hemoglobin ABG Oxyhemoglobin VBG pH Sodium Potassium Chloride 107.6 H Carbon Dioxide 19 L BUN Creatinine 1.6 H Glucose 172 H POC Glucose 120 H 294 H Hemoglobin A1c Lactic Acid Calcium 8.1 L Phosphorus Magnesium Alkaline Phosphatase Total Protein Urine Creatinine Urine Microalbumin Urine Total Protein 01/09/22 01/09/22 01/10/22 23:27 Unknown 04:16 WBC 13.5 H RBC Hgb Hct RDW 12.9 L Plt Count 114 L [place] % (Auto) 8.9 H [place] # (Auto) 1.2 H Seg Neutrophils % 70.9 H Seg Neutrophils # 9.6 H APTT ABG pH POC ABG pCO2 POC ABG pO2 ABG Hemoglobin ABG Oxyhemoglobin VBG pH Sodium Potassium Chloride Carbon Dioxide BUN Creatinine Glucose POC Glucose 280 H Hemoglobin A1c Lactic Acid Calcium Phosphorus Magnesium Alkaline Phosphatase Total Protein Urine Creatinine 151.0 H Urine Microalbumin 108.9 H Urine Total Protein 183 H 01/10/22 01/10/22 01/10/22 04:16 05:14 10:12 WBC RBC Hgb Hct RDW Plt Count [place] % (Auto) [place] # (Auto) Seg Neutrophils % Seg Neutrophils # APTT ABG pH POC ABG pCO2 POC ABG pO2 ABG Hemoglobin ABG Oxyhemoglobin VBG pH Sodium Potassium Chloride 110.0 H Carbon Dioxide 20 L BUN Creatinine Glucose 286 H POC Glucose 293 H 265 H Hemoglobin A1c Lactic Acid Calcium 8.3 L Phosphorus Magnesium Alkaline Phosphatase Total Protein Urine Creatinine Urine Microalbumin Urine Total Protein
--- NOTE | 2022-01-10 11:16 | Progress Note ---
<SELMA FARAHSandip - Last Filed: 01/10/22 13:26> Assessment and Plan Assessment and plan: Assessment and plan: This is a 46-year-old male with NESHA, HTN, DM admitted with DKA and acute hypoxic respiratory failure Neuro: Acute metabolic encephalopathy (resolved), possible delirium -s/p Versed, fentanyl and propofol -Now on Precedex drip -wean as tolerated -Avoid delirium -Seroquel 75 BID -monitor QTc -Reorientation as needed -Maintain sleep-wake cycle -As needed analgesia -CT head shows no distinct acute intracranial abnormality, no gross evidence of acute cerebral pathology -Bilateral soft restraints for safety Cardiac: h/o HTN -Blood pressure monitoring per protocol -No home meds listed -Start ACEi or ARB if needed Respiratory: Acute hypoxic respiratory failure, h/o OSH -CCM consulted, appreciate recommendations -Intubated on 01/08 with 7.00 ETT at 23 at the lips and extubated on 01/09 -BiPAP q HS -Pulmonary hygiene -SPO2 monitoring GI: MO -24 hours +455 mL -PPI -CC cardiac diet -BR: Senokot : Hyperchloremia, metabolic acidosis, acute kidney injury (resolving) -Nephrology consulted, appreciate recommendations -Likely secondary to vasomotor nephropathy -Strict intake and output -Renally dose medications -Avoid nephrotoxic medications -Daily weights -01/09 FeNa 0.018 indicating prerenal -Renal ultrasound pending read ID: SIRS versus sepsis, r/o meningitis -On admission patient was febrile with leukocytosis -S/p LP in the ED -WBC 0, RBC 3, glucose 333, protein 50, clear -Infectious disease consulted, appreciate recommendation -Antibiotic therapy Zosyn -COVID-19 PCR negative -f/u blood culture -Monitor WBC and temperature curve Endo: s/p DKA, h/o newly diagnosed diabetes mellitus -s/p Insulin drip -Avoid hypoglycemia -SSI -Accu-Cheks q. 6 -Long-acting insulin, titrate as needed -Hemoglobin A1c 10.2 Heme: Leukocytosis, thrombocytopenia -Trend CBC -Transfuse hemoglobin less than 7 -Monitor for signs of bleeding -SCDs to BLE while in bed -Heparin subcu -We will continue to monitor platelets The high probability of a clinically significant, sudden or life threatening deterioration of the [resp/endo] system(s) required my full and direct attention, intervention and personal management. The aggregate critical care time was [60] minutes. This time is in addition to time spent performing reported procedures but includes the following: [x] Data Review and interpretation [x] Patient assessment and monitoring of vital signs [x] Documentation [x] Medication orders and management Disposition Plan: transfer to floor Total Time Spent with Patient (Minutes): 60 History Interval history: This is a 46-year-old male with NESHA, HTN, DM who presented to the hospital on 01/09 with complaints of altered mental status via EMS. With EMS patient was combative on scene and received 5 mg Haldol, 50 mg Benadryl, 5 mg Versed prior to arrival and was noted to have significant hypertension and elevated blood glucose of 4 5 with EMS. Patient's family member states that he was complaining of a headache for the past 2 days and was completely normal around 1 PM on 01/08. Of note patient received his Covid booster 2 weeks ago. In the emergency department patient was found to have a blood glucose of 639 and lab work consistent with ROLA and DKA with lactic acidosis. CT scan of his head showed no discrete intracranial abnormality, CXR was clear. LP performed by ED physician patient was admitted to the hospital service with DKA, lactic acidosis and sepsis on an insulin drip, mechanical ventilation as a COVID-19 PUI. Admitted with consults to [facility]. 01/10: Patient was extubated today to BiPAP, COVID-19 PCR negative. Patient started on Precedex. 01/10: Increasing long-acting insulin, patient will be taken off of dextrose containing fluid test here in the past for swallow evaluation will be started on CC diet. RN to wean off Precedex drip and started on Seroquel 75 mg twice daily. Hospitalist Physical - Constitutional Vitals: Temp Pulse Resp BP Pulse Ox 98.8 F 60 29 H 133/88 95 01/10/22 09:00 01/10/22 08:51 01/10/22 08:51 01/10/22 08:51 01/10/22 08:51 General appearance: Present: no acute distress, well-nourished - EENT Eyes: Present: PERRL, EOM intact ENT: hearing intact, clear oral mucosa, dentition normal - Neck Neck: Present: normal ROM - Respiratory Respiratory effort: normal Respiratory: bilateral: diminished - Cardiovascular Rhythm: regular Heart Sounds: Present: S1 & S2. Absent: systolic murmur, diastolic murmur - Extremities Extremities: no ischemia, pulses intact, pulses symmetrical, No edema, normal temperature, normal color Peripheral Pulses: within normal limits - Abdominal General gastrointestinal: soft, non-tender, non-distended, normal bowel sounds - Integumentary Integumentary: Present: warm, dry - Psychiatric Psychiatric: cooperative - Neurologic Neurologic: CNII-XII intact, no focal deficits, moves all extremities - Allied Health Allied health notes reviewed: nursing, RT, social work HEART Score - HEART Score Troponin: Troponin T < 0.010 ng/mL (0.00-0.029) 01/08/22 18:58 Results - Labs CBC & Chem 7: 01/10/22 04:16 01/10/22 04:16 Labs: Laboratory Last Values WBC 13.5 K/mm3 (4.5-11.0) H 01/10/22 04:16 RBC 4.90 M/mm3 (3.65-5.03) 01/10/22 04:16 Hgb 14.5 gm/dl (11.8-15.2) D 01/10/22 04:16 Hct 45.3 % (35.5-45.6) D 01/10/22 04:16 MCV 93 fl (84-94) 01/10/22 04:16 MCH 30 pg (28-32) 01/10/22 04:16 MCHC 32 % (32-34) 01/10/22 04:16 RDW 12.9 % (13.2-15.2) L 01/10/22 04:16 Plt Count 114 K/mm3 (140-440) L 01/10/22 04:16 Lymph % (Auto) 18.9 % (13.4-35.0) 01/10/22 04:16 [place] % (Auto) 8.9 % (0.0-7.3) H 01/10/22 04:16 Eos % (Auto) 0.3 % (0.0-4.3) 01/10/22 04:16 Baso % (Auto) 1.0 % (0.0-1.8) 01/10/22 04:16 Lymph # (Auto) 2.5 K/mm3 (1.2-5.4) 01/10/22 04:16 [place] # (Auto) 1.2 K/mm3 (0.0-0.8) H 01/10/22 04:16 Eos # (Auto) 0.0 K/mm3 (0.0-0.4) 01/10/22 04:16 Baso # (Auto) 0.1 K/mm3 (0.0-0.1) 01/10/22 04:16 Seg Neutrophils % 70.9 % (40.0-70.0) H 01/10/22 04:16 Seg Neutrophils # 9.6 K/mm3 (1.8-7.7) H 01/10/22 04:16 PT 14.6 Sec. (12.2-14.9) 01/08/22 18:58 INR 1.03 (0.87-1.13) 01/08/22 18:58 APTT 20.1 Sec. (24.2-36.6) L 01/08/22 18:58 ABG pH 7.365 (7.320-7.450) 01/09/22 09:15 POC ABG pCO2 45.1 mmHg (32.0-48.0) 01/09/22 09:15 POC ABG pO2 80.7 mmHg (83-108) L 01/09/22 09:15 POC ABG HCO3 25.2 01/09/22 09:15 ABG O2 Saturation 96.5 (0-100) 01/09/22 09:15 POC ABG Base Excess -0.5 01/09/22 09:15 ABG Hemoglobin 16.8 (12.0-17.5) 01/09/22 09:15 ABG Oxyhemoglobin 96 (94-98) 01/09/22 09:15 ABG Methemoglobin 0 (0.0-1.5) 01/09/22 09:15 VBG pH 7.262 (7.320-7.420) L 01/08/22 18:58 Carboxyhemoglobin 0.5 (0.5-1.5) 01/09/22 09:15 FiO2 % 40.0 01/09/22 09:15 Sodium 142 mmol/L (137-145) 01/10/22 04:16 Potassium 4.6 mmol/L (3.6-5.0) 01/10/22 04:16 Chloride 110.0 mmol/L (98-107) H 01/10/22 04:16 Carbon Dioxide 20 mmol/L (22-30) L 01/10/22 04:16 Anion Gap 17 mmol/L 01/10/22 04:16 BUN 18 mg/dL (9-20) 01/10/22 04:16 Creatinine 1.3 mg/dL (0.8-1.3) 01/10/22 04:16 Estimated GFR > 60 ml/min 01/10/22 04:16 BUN/Creatinine Ratio 14 % 01/10/22 04:16 Glucose 286 mg/dL (75-100) H 01/10/22 04:16 POC Glucose 265 mg/dL (70-105) H 01/10/22 10:12 Hemoglobin A1c 10.2 % (4-6) H 01/08/22 20:19 Lactic Acid 1.30 mmol/L (0.7-2.0) 01/09/22 04:38 Calcium 8.3 mg/dL (8.4-10.2) L 01/10/22 04:16 Phosphorus 4.20 mg/dL (2.5-4.5) D 01/09/22 00:46 Magnesium 2.60 mg/dL (1.7-2.3) H 01/09/22 00:46 Total Bilirubin 0.60 mg/dL (0.1-1.2) 01/08/22 18:58 AST 26 units/L (5-40) 01/08/22 18:58 ALT 34 units/L (7-56) 01/08/22 18:58 Alkaline Phosphatase 216 units/L (35-129) H 01/08/22 18:58 Ammonia 53.0 umol/L (25-60) 01/08/22 18:58 Troponin T < 0.010 ng/mL (0.00-0.029) 01/08/22 18:58 Total Protein 8.6 g/dL (6.3-8.2) H 01/08/22 18:58 Albumin 4.8 g/dL (3.9-5) 01/08/22 18:58 Albumin/Globulin Ratio 1.3 % 01/08/22 18:58 TSH 1.110 mlU/mL (0.270-4.200) 01/08/22 18:58 Urine Color Yellow (Yellow) 01/08/22 20:20 Urine Turbidity Clear (Clear) 01/08/22 20:20 Urine pH 5.0 (5.0-7.0) 01/08/22 20:20 Ur Specific [place] 1.030 (1.003-1.030) 01/08/22 20:20 Urine Protein >500 mg/dL (Negative) 01/08/22 20:20 Urine Glucose (UA) >=500 mg/dL (Negative) 01/08/22 20:20 Urine Ketones Tr mg/dL (Negative) 01/08/22 20:20 Urine Blood Lg (Negative) 01/08/22 20:20 Urine Nitrite Neg (Negative) 01/08/22 20:20 Urine Bilirubin Neg (Negative) 01/08/22 20:20 Urine Urobilinogen < 2.0 mg/dL (<2.0) 01/08/22 20:20 Ur Leukocyte Esterase Neg (Negative) 01/08/22 20:20 Urine WBC (Auto) 3.0 /HPF (0.0-6.0) 01/08/22 20:20 Urine RBC (Auto) 1.0 /HPF (0.0-6.0) 01/08/22 20:20 U Epithel Cells (Auto) 1.0 /HPF (0-13.0) 01/08/22 20:20 Urine Mucus Few /HPF 01/08/22 20:20 Urine Creatinine 151.0 mg/dL (0.1-20.0) H 01/09/22 Unknown Urine Microalbumin 108.9 mg/dL (0.1-34.0) H 01/09/22 Unknown Microalb/Creat Ratio 721.1 ug/mg 01/09/22 Unknown Urine Sodium 23 mmol/L 01/09/22 Unknown Urine Urea Nitrogen 346 01/09/22 Unknown Urine Total Protein 183 mg/dL (5-11.8) H 01/09/22 Unknown CSF Appearance Clear 01/08/22 21:40 CSF Color Colorless 01/08/22 21:40 CSF WBC 0 /mm3 (1-10) 01/08/22 21:40 CSF RBC 3 /mm3 (0-0) 01/08/22 21:40 CSF Seg Neutrophils 100.0 % (0-6) 01/08/22 21:40 CSF Lymphocytes % 0 % (40-80) 01/08/22 21:40 CSF Reactive Lymphs 0 % 01/08/22 21:40 CSF Monocytes % 0 % (15-45) 01/08/22 21:40 CSF Eosinophils % 0 % 01/08/22 21:40 CSF Basophils 0 % 01/08/22 21:40 CSF Pathologist Review C 01/08/22 21:40 CSF Glucose 333 mg/dL 01/08/22 21:40 CSF Total Protein 50 mg/dL 01/08/22 21:40 Urine Opiates Screen Presumptive negative 01/08/22 20:20 Urine Methadone Screen Presumptive negative 01/08/22 20:20 Ur Barbiturates Screen Presumptive negative 01/08/22 20:20 Ur Phencyclidine Scrn Presumptive negative 01/08/22 20:20 Ur Amphetamines Screen Presumptive negative 01/08/22 20:20 U Benzodiazepines Scrn Presumptive positive 01/08/22 20:20 Urine Cocaine Screen Presumptive negative 01/08/22 20:20 U Marijuana (THC) Screen Presumptive negative 01/08/22 20:20 Drugs of Abuse Note Disclamer 01/08/22 20:20 Plasma/Serum Alcohol < 0.01 % (0-0.07) 01/08/22 18:58 Coronavirus (PCR) Negative (Negative) 01/09/22 Unknown Blood Type B POSITIVE 01/08/22 19:00 Antibody Screen Negative 01/08/22 19:00 Microbiology: Microbiology 01/08/22 21:40 Cerebral Spinal Fluid CSF Culture - Preliminary 01/08/22 Unknown Urine,Clean Catch Urine Culture - Preliminary NO GROWTH AFTER 24 HOURS 01/08/22 18:58 Peripheral/Venous Blood Culture - Preliminary NO GROWTH AFTER 24 HOURS 01/08/22 19:39 Peripheral/Venous Blood Culture - Preliminary NO GROWTH AFTER 24 HOURS Cota/IV: Voiding Method Indwelling Catheter Active Medications - Current Medications Current Medications: Generic Name Dose Route Start Last Admin Trade Name Freq PRN Reason Stop Dose Admin Acetaminophen 650 mg 01/09/22 00:34 Acetaminophen 325 Mg Tab PO Q4H PRN Pain MILD(1-3)/Fever >100.5/[place] Albuterol 2.5 mg 01/09/22 00:34 Albuterol 2.5 Mg/3 Ml Nebu IH Q3HRT PRN Shortness Of Breath Dextrose 0 ml 01/09/22 00:54 Dextrose 10% *Hypoglycemia IV PRN PRN Hypoglycemia Protocol Dextrose 50 ml 01/09/22 15:06 Dextrose 50% In Water (25gm) 50 Ml Syringe IV Q30MIN PRN Hypoglycemia Protocol Famotidine 10 mg 01/09/22 10:00 01/10/22 09:56 Famotidine 20 Mg/2 Ml Inj IV 10 mg BID SADAF Administration Hydrophilic Ointment 1 applic 01/08/22 18:59 Lip Therapy Vaseline TP Q2HR PRN Dry Lips Piperacillin Sod/Tazobactam Sod 3.375 gm in 50 mls @ 100 mls/hr 01/09/22 13:00 01/10/22 05:07 Zosyn/Ns 3.375gm/50ml IV 100 mls/hr Q8H SADAF Administration Protocol Dexmedetomidine HCl 400 mcg/ 104 mls @ 6.251 mls/hr 01/09/22 15:00 01/10/22 09:30 Sodium Chloride IV 1.2 mcg/kg/hr TITRATE SADAF 37.503 mls/hr Titration Protocol 0.2 MCG/KG/HR Insulin Glargine 20 units 01/10/22 10:00 01/10/22 10:12 Insulin Glargine 100 Units/Ml SUB-Q 20 units QAM SADAF Administration Insulin Human Lispro 0 unit 01/09/22 18:00 01/10/22 05:16 Insulin Lispro 100 Unit/Ml SUB-Q 6 unit Q6HR SADAF Administration Protocol Ondansetron HCl 4 mg 01/09/22 00:34 Ondansetron 4 Mg/2 Ml Inj IV Q8H PRN Nausea And Vomiting Quetiapine Fumarate 75 mg 01/10/22 11:00 Quetiapine 25 Mg Tab PO BID SADAF Sodium Chloride 10 ml 01/09/22 10:00 01/10/22 09:56 Sodium Chloride 0.9% 10 Ml Flush Syringe IV 10 ml BID SADAF Administration Sodium Chloride 10 ml 01/09/22 00:34 Sodium Chloride 0.9% 10 Ml Flush Syringe IV PRN PRN LINE FLUSH Nutrition/Malnutrition Assess - Dietary Evaluation Nutrition/Malnutrition Findings: Nutrition Notes Start: 01/09/22 11:58 Freq: Status: Active Protocol: Document 01/09/22 11:58 MANDI (Rec: 01/09/22 12:12 [id number]) Nutrition Notes Need for Assessment generated from: MD Order,coiler Initial or Follow up Assessment Current Diagnosis Diabetes,Sepsis,Hypertension Other Pertinent Diagnosis AMS, DKA, ARF Current Diet NPO Labs/Tests A1C 10.2 BUN 23 Cr 2.2 Pertinent Medications Insulin gtt, D5 1/2NS + 20mEq KCl at 125ml/hr, Propofol at 29.502ml/hr (provides 779 kcal ), NS at 125ml/hr Height 5 ft 8 in Weight 120.202 kg [place] Body Weight (kg) 70.00 BMI 40.3 Weight Status Morbidly Obese Subjective/Other Information RD consulted to evaluate nutritional intake and for diet education. Pt intubated at this time and inappropriate for diet education. Burn Absent Trauma Absent Minimum of two criteria No #1 Nutrition Diagnosis Inadequate oral intake [facility] As Evidenced by Signs and Symptoms pt NPO Is patient on ventilator? Yes Is Patient Ambulatory and/or Out of Bed No REE-([facility]-confined to bed) 7986.826 Calculation Used for Recommendations 65-70% energy needs Additional Notes Energy needs: 9785-8482 kcal/ day Pro needs: up to 2.5g/kg IBW: up to 175g/day Fluid needs 1ml/kcal Nutrition Intervention Change Diet Order: Advance diet when medically feasible Nutrition Support: If unable to advance diet, Vital HP at 70ml/hr (however, if propofol still providing excess kcal, infuse at 50ml/hr ). Goal #1 Either advance diet or start EN support to meet nutrient needs Anticipated Discharge Needs: CHO-controlled/Low Na diet Follow-Up By: 01/12/22 Additional Comments F/U: vent status, TF consult vs diet advancement, propofol <AILVIA PATINO E - Last Filed: 01/11/22 07:16> Assessment and Plan Assessment and plan: I saw and evaluated the patient. I agree with the findings and the plan of care as documented in the Nurse Practitioner's~note, with the following corrections and additions. Diabetic education with goal to discharge IN AM Hospitalist Physical - Constitutional Vitals: Temp Pulse Resp BP Pulse Ox 98.8 F 61 18 121/76 94 01/10/22 09:00 01/10/22 15:01 01/10/22 23:41 01/10/22 15:01 01/10/22 22:16 HEART Score - HEART Score Troponin: Troponin T < 0.010 ng/mL (0.00-0.029) 01/08/22 18:58 Results - Labs CBC & Chem 7: 01/11/22 05:55 01/11/22 05:55 Labs: Laboratory Last Values WBC 9.6 K/mm3 (4.5-11.0) 01/11/22 05:55 RBC 4.74 M/mm3 (3.65-5.03) 01/11/22 05:55 Hgb 14.5 gm/dl (11.8-15.2) 01/11/22 05:55 Hct 43.8 % (35.5-45.6) 01/11/22 05:55 MCV 92 fl (84-94) 01/11/22 05:55 MCH 31 pg (28-32) 01/11/22 05:55 MCHC 33 % (32-34) 01/11/22 05:55 RDW 13.3 % (13.2-15.2) 01/11/22 05:55 Plt Count 110 K/mm3 (140-440) L 01/11/22 05:55 Lymph % (Auto) 18.9 % (13.4-35.0) 01/10/22 04:16 [place] % (Auto) 8.9 % (0.0-7.3) H 01/10/22 04:16 Eos % (Auto) 0.3 % (0.0-4.3) 01/10/22 04:16 Baso % (Auto) 1.0 % (0.0-1.8) 01/10/22 04:16 Lymph # (Auto) 2.5 K/mm3 (1.2-5.4) 01/10/22 04:16 [place] # (Auto) 1.2 K/mm3 (0.0-0.8) H 01/10/22 04:16 Eos # (Auto) 0.0 K/mm3 (0.0-0.4) 01/10/22 04:16 Baso # (Auto) 0.1 K/mm3 (0.0-0.1) 01/10/22 04:16 Seg Neutrophils % 70.9 % (40.0-70.0) H 01/10/22 04:16 Seg Neutrophils # 9.6 K/mm3 (1.8-7.7) H 01/10/22 04:16 PT 14.6 Sec. (12.2-14.9) 01/08/22 18:58 INR 1.03 (0.87-1.13) 01/08/22 18:58 APTT 20.1 Sec. (24.2-36.6) L 01/08/22 18:58 ABG pH 7.365 (7.320-7.450) 01/09/22 09:15 POC ABG pCO2 45.1 mmHg (32.0-48.0) 01/09/22 09:15 POC ABG pO2 80.7 mmHg (83-108) L 01/09/22 09:15 POC ABG HCO3 25.2 01/09/22 09:15 ABG O2 Saturation 96.5 (0-100) 01/09/22 09:15 POC ABG Base Excess -0.5 01/09/22 09:15 ABG Hemoglobin 16.8 (12.0-17.5) 01/09/22 09:15 ABG Oxyhemoglobin 96 (94-98) 01/09/22 09:15 ABG Methemoglobin 0 (0.0-1.5) 01/09/22 09:15 VBG pH 7.262 (7.320-7.420) L 01/08/22 18:58 Carboxyhemoglobin 0.5 (0.5-1.5) 01/09/22 09:15 FiO2 % 40.0 01/09/22 09:15 Sodium 139 mmol/L (137-145) 01/11/22 05:55 Potassium 3.4 mmol/L (3.6-5.0) L D 01/11/22 05:55 Chloride 103.7 mmol/L (98-107) 01/11/22 05:55 Carbon Dioxide 22 mmol/L (22-30) 01/11/22 05:55 Anion Gap 17 mmol/L 01/11/22 05:55 BUN 13 mg/dL (9-20) 01/11/22 05:55 Creatinine 0.9 mg/dL (0.8-1.3) 01/11/22 05:55 Estimated GFR > 60 ml/min 01/11/22 05:55 BUN/Creatinine Ratio 14 % 01/11/22 05:55 Glucose 195 mg/dL (75-100) H 01/11/22 05:55 POC Glucose 178 mg/dL (70-105) H 01/11/22 07:04 Hemoglobin A1c 10.2 % (4-6) H 01/08/22 20:19 Lactic Acid 1.30 mmol/L (0.7-2.0) 01/09/22 04:38 Calcium 8.3 mg/dL (8.4-10.2) L 01/11/22 05:55 Phosphorus 4.20 mg/dL (2.5-4.5) D 01/09/22 00:46 Magnesium 2.60 mg/dL (1.7-2.3) H 01/09/22 00:46 Total Bilirubin 0.60 mg/dL (0.1-1.2) 01/08/22 18:58 AST 26 units/L (5-40) 01/08/22 18:58 ALT 34 units/L (7-56) 01/08/22 18:58 Alkaline Phosphatase 216 units/L (35-129) H 01/08/22 18:58 Ammonia 53.0 umol/L (25-60) 01/08/22 18:58 Troponin T < 0.010 ng/mL (0.00-0.029) 01/08/22 18:58 Total Protein 8.6 g/dL (6.3-8.2) H 01/08/22 18:58 Albumin 4.8 g/dL (3.9-5) 01/08/22 18:58 Albumin/Globulin Ratio 1.3 % 01/08/22 18:58 TSH 1.110 mlU/mL (0.270-4.200) 01/08/22 18:58 Urine Color Yellow (Yellow) 01/08/22 20:20 Urine Turbidity Clear (Clear) 01/08/22 20:20 Urine pH 5.0 (5.0-7.0) 01/08/22 20:20 Ur Specific [place] 1.030 (1.003-1.030) 01/08/22 20:20 Urine Protein >500 mg/dL (Negative) 01/08/22 20:20 Urine Glucose (UA) >=500 mg/dL (Negative) 01/08/22 20:20 Urine Ketones Tr mg/dL (Negative) 01/08/22 20:20 Urine Blood Lg (Negative) 01/08/22 20:20 Urine Nitrite Neg (Negative) 01/08/22 20:20 Urine Bilirubin Neg (Negative) 01/08/22 20:20 Urine Urobilinogen < 2.0 mg/dL (<2.0) 01/08/22 20:20 Ur Leukocyte Esterase Neg (Negative) 01/08/22 20:20 Urine WBC (Auto) 3.0 /HPF (0.0-6.0) 01/08/22 20:20 Urine RBC (Auto) 1.0 /HPF (0.0-6.0) 01/08/22 20:20 U Epithel Cells (Auto) 1.0 /HPF (0-13.0) 01/08/22 20:20 Urine Mucus Few /HPF 01/08/22 20:20 Urine Creatinine 151.0 mg/dL (0.1-20.0) H 01/09/22 Unknown Urine Microalbumin 108.9 mg/dL (0.1-34.0) H 01/09/22 Unknown Microalb/Creat Ratio 721.1 ug/mg 01/09/22 Unknown Urine Sodium 23 mmol/L 01/09/22 Unknown Urine Urea Nitrogen 346 01/09/22 Unknown Urine Total Protein 183 mg/dL (5-11.8) H 01/09/22 Unknown CSF Appearance Clear 01/08/22 21:40 CSF Color Colorless 01/08/22 21:40 CSF WBC 0 /mm3 (1-10) 01/08/22 21:40 CSF RBC 3 /mm3 (0-0) 01/08/22 21:40 CSF Seg Neutrophils 100.0 % (0-6) 01/08/22 21:40 CSF Lymphocytes % 0 % (40-80) 01/08/22 21:40 CSF Reactive Lymphs 0 % 01/08/22 21:40 CSF Monocytes % 0 % (15-45) 01/08/22 21:40 CSF Eosinophils % 0 % 01/08/22 21:40 CSF Basophils 0 % 01/08/22 21:40 CSF Pathologist Review C 01/08/22 21:40 CSF Glucose 333 mg/dL 01/08/22 21:40 CSF Total Protein 50 mg/dL 01/08/22 21:40 Urine Opiates Screen Presumptive negative 01/08/22 20:20 Urine Methadone Screen Presumptive negative 01/08/22 20:20 Ur Barbiturates Screen Presumptive negative 01/08/22 20:20 Ur Phencyclidine Scrn Presumptive negative 01/08/22 20:20 Ur Amphetamines Screen Presumptive negative 01/08/22 20:20 U Benzodiazepines Scrn Presumptive positive 01/08/22 20:20 Urine Cocaine Screen Presumptive negative 01/08/22 20:20 U Marijuana (THC) Screen Presumptive negative 01/08/22 20:20 Drugs of Abuse Note Disclamer 01/08/22 20:20 Plasma/Serum Alcohol < 0.01 % (0-0.07) 01/08/22 18:58 Coronavirus (PCR) Negative (Negative) 01/09/22 Unknown Blood Type B POSITIVE 01/08/22 19:00 Antibody Screen Negative 01/08/22 19:00 Microbiology: Microbiology 01/08/22 18:58 Peripheral/Venous Blood Culture - Preliminary NO GROWTH AFTER 48 HOURS 01/08/22 19:39 Peripheral/Venous Blood Culture - Preliminary NO GROWTH AFTER 48 HOURS 01/08/22 21:40 Cerebral Spinal Fluid CSF Culture - Preliminary 01/08/22 Unknown Urine,Clean Catch Urine Culture - Preliminary NO GROWTH AFTER 24 HOURS Cota/IV: Voiding Method Indwelling Catheter Active Medications - Current Medications Current Medications: Generic Name Dose Route Start Last Admin Trade Name Freq PRN Reason Stop Dose Admin Acetaminophen 650 mg 01/09/22 00:34 01/10/22 22:41 Acetaminophen 325 Mg Tab PO 650 mg Q4H PRN Administration Pain MILD(1-3)/Fever >100.5/[place] Albuterol 2.5 mg 01/09/22 00:34 Albuterol 2.5 Mg/3 Ml Nebu IH Q3HRT PRN Shortness Of Breath Amlodipine Besylate 5 mg 01/10/22 13:00 01/10/22 13:22 Amlodipine 5 Mg Tab PO 5 mg QDAY SADAF Administration Dextrose 0 ml 01/09/22 00:54 Dextrose 10% *Hypoglycemia IV PRN PRN Hypoglycemia Protocol Dextrose 50 ml 01/09/22 15:06 Dextrose 50% In Water (25gm) 50 Ml Syringe IV Q30MIN PRN Hypoglycemia Protocol Famotidine 20 mg 01/10/22 22:00 01/10/22 22:39 Famotidine 20 Mg Tab PO 20 mg BID SADAF Administration Hydrophilic Ointment 1 applic 01/08/22 18:59 Lip Therapy Vaseline TP Q2HR PRN Dry Lips Piperacillin Sod/Tazobactam Sod 3.375 gm in 50 mls @ 100 mls/hr 01/09/22 13:00 01/11/22 05:18 Zosyn/Ns 3.375gm/50ml IV 100 mls/hr Q8H SADAF Administration Protocol Insulin Glargine 20 units 01/10/22 10:00 01/10/22 10:12 Insulin Glargine 100 Units/Ml SUB-Q 20 units QAM SADAF Administration Insulin Human Lispro 0 unit 01/09/22 18:00 01/11/22 00:20 Insulin Lispro 100 Unit/Ml SUB-Q 6 unit Q6HR SADAF Administration Protocol Lorazepam 2 mg 01/10/22 12:00 Lorazepam 2 Mg/Ml Vial IV Q4H PRN Agitation Ondansetron HCl 4 mg 01/09/22 00:34 Ondansetron 4 Mg/2 Ml Inj IV Q8H PRN Nausea And Vomiting Quetiapine Fumarate 75 mg 01/10/22 11:00 01/10/22 22:40 Quetiapine 25 Mg Tab PO 75 mg BID SADAF Administration Senna/Docusate Sodium 1 tab 01/10/22 22:00 01/10/22 22:40 Sennosides/Docusate Sodium 8.6/50 Mg Tab PO 1 tab QHS SADAF Administration Sodium Chloride 10 ml 01/09/22 10:00 01/10/22 22:40 Sodium Chloride 0.9% 10 Ml Flush Syringe IV 10 ml BID SADAF Administration Sodium Chloride 10 ml 01/09/22 00:34 Sodium Chloride 0.9% 10 Ml Flush Syringe IV PRN PRN LINE FLUSH Nutrition/Malnutrition Assess - Dietary Evaluation Nutrition/Malnutrition Findings: Nutrition Notes Start: 01/09/22 11:58 Freq: Status: Active Protocol: Document 01/09/22 11:58 MANDI (Rec: 01/09/22 12:12 MANDI [id number]) Nutrition Notes Need for Assessment generated from: MD Order,coiler Initial or Follow up Assessment Current Diagnosis Diabetes,Sepsis,Hypertension Other Pertinent Diagnosis AMS, DKA, ARF Current Diet NPO Labs/Tests A1C 10.2 BUN 23 Cr 2.2 Pertinent Medications Insulin gtt, D5 1/2NS + 20mEq KCl at 125ml/hr, Propofol at 29.502ml/hr (provides 779 kcal ), NS at 125ml/hr Height 5 ft 8 in Weight 120.202 kg [place] Body Weight (kg) 70.00 BMI 40.3 Weight Status Morbidly Obese Subjective/Other Information RD consulted to evaluate nutritional intake and for diet education. Pt intubated at this time and inappropriate for diet education. Burn Absent Trauma Absent Minimum of two criteria No #1 Nutrition Diagnosis Inadequate oral intake [facility] As Evidenced by Signs and Symptoms pt NPO Is patient on ventilator? Yes Is Patient Ambulatory and/or Out of Bed No REE-([facility]-confined to bed) [phone] Calculation Used for Recommendations 65-70% energy needs Additional Notes Energy needs: [phone] kcal/ day Pro needs: up to 2.5g/kg IBW: up to 175g/day Fluid needs 1ml/kcal Nutrition Intervention Change Diet Order: Advance diet when medically feasible Nutrition Support: If unable to advance diet, Vital HP at 70ml/hr (however, if propofol still providing excess kcal, infuse at 50ml/hr ). Goal #1 Either advance diet or start EN support to meet nutrient needs Anticipated Discharge Needs: CHO-controlled/Low Na diet Follow-Up By: 01/12/22 Additional Comments F/U: vent status, TF consult vs diet advancement, propofol
[2022-01-10] MEDS: QUEtiapine 25 MG TAB PO SCH ×2 (11:26→22:40)
[2022-01-10] MEDS ORDERED: LORazepam 2 MG/ML VIAL IV PRN (12:00)
[2022-01-10] MEDS: amLODIPine 5 MG TAB PO SCH (13:22)
[2022-01-10] MEDS: ACETAMINOPHEN 325 MG TAB PO PRN ×2 (18:10→22:41)
[2022-01-10] MEDS ORDERED: SENNOSIDES/DOCUSATE SODIUM 8.6/50 MG TAB PO SCH (22:00)
[2022-01-10] MEDS: FAMOTIDINE 20 MG TAB PO SCH (22:39)
[2022-01-11] MEDS: INSULIN LISPRO 100 UNIT/ML SUB-Q SCH ×2 (00:20→06:36)
[2022-01-11] MEDS: PIPERACILLIN/TAZOBACTAM 3.375 3.375 GM/50 ML BAG IV SCH (05:18)
[2022-01-11 06:43] LABS: Hematocrit 43.8 % (35.5-45.6); Hemoglobin 14.5 gm/dl (11.8-15.2); Mean Corpuscular HGB Conc 33 % (32-34); Mean Corpuscular Volume 92 fl (84-94); Platelet Count 110 K/mm3 (140-440); Red Blood Count 4.74 M/mm3 (3.65-5.03); Red Cell Distribution Width 13.3 % (13.2-15.2)
[2022-01-11 06:50] LABS: BUN/Creatinine Ratio 14; Blood Urea Nitrogen 13 mg/dL (9-20); Calcium 8.3 mg/dL (8.4-10.2); Hemolysis Index 3
--- NOTE | 2022-01-11 09:10 | Discharge Summary ---
Providers - Providers Date of Admission: 01/09/22 00:34 Attending physician: ALIVIA PATINO MD 01/08/22 21:41 Consult to Physician [CONS] Urgent Comment: Consulting Provider: LIA ESCALONA Physician Instructions: Reason For Exam: FEVER, DKA, headache, encephalopathy 01/08/22 22:56 Consult to Physician [CONS] Urgent Comment: Dr. Arevalo spoke with Dr. Foster @ [id number] Consulting Provider: DAYANA FOSTER Physician Instructions: Reason For Exam: FEVER, DKA, headache, encephalopathy 01/09/22 09:51 Consult to Physician [CONS] Routine Comment: called office/ victorino Consulting Provider: RYLEE LOVE Physician Instructions: Reason For Exam: yuan 01/10/22 17:30 Physical Therapy Evaluation and Treat [CONS] Routine Comment: Reason For Exam: weakness Hospitalization Condition: Stable Hospital course: This is a 46-year-old male with NESHA, HTN, DM admitted with DKA and acute hypoxic respiratory failure Neuro: Acute metabolic encephalopathy (resolved), possible delirium -s/p Versed, fentanyl and propofol -Now on Precedex drip -wean as tolerated -Avoid delirium -Seroquel 75 BID -monitor QTc -Reorientation as needed -Maintain sleep-wake cycle -As needed analgesia -CT head shows no distinct acute intracranial abnormality, no gross evidence of acute cerebral pathology -Bilateral soft restraints for safety Cardiac: h/o HTN -Blood pressure monitoring per protocol -No home meds listed -Start ACEi or ARB if needed Respiratory: Acute hypoxic respiratory failure, h/o OSH -CCM consulted, appreciate recommendations -Intubated on 01/08 with 7.00 ETT at 23 at the lips and extubated on 01/09 -BiPAP q HS -Pulmonary hygiene -SPO2 monitoring GI: MO -24 hours +455 mL -PPI -CC cardiac diet -BR: Senokot : Hyperchloremia, metabolic acidosis, acute kidney injury (resolving) -Nephrology consulted, appreciate recommendations -Likely secondary to vasomotor nephropathy -Strict intake and output -Renally dose medications -Avoid nephrotoxic medications -Daily weights -01/09 FeNa 0.018 indicating prerenal -Renal ultrasound pending read ID: SIRS versus sepsis, r/o meningitis -On admission patient was febrile with leukocytosis -S/p LP in the ED -WBC 0, RBC 3, glucose 333, protein 50, clear -Infectious disease consulted, appreciate recommendation -Antibiotic therapy Zosyn -COVID-19 PCR negative -f/u blood culture -Monitor WBC and temperature curve Endo: s/p DKA, h/o newly diagnosed diabetes mellitus -s/p Insulin drip -Avoid hypoglycemia -SSI -Accu-Cheks q. 6 -Long-acting insulin, titrate as needed -Hemoglobin A1c 10.2 Heme: Leukocytosis, thrombocytopenia -Trend CBC -Transfuse hemoglobin less than 7 -Monitor for signs of bleeding -SCDs to BLE while in bed -Heparin subcu -We will continue to monitor platelets Disposition: HOME HEALTH CARE SERVICE Time spent for discharge: 35 mins Core Measure Documentation - Palliative Care Palliative Care/ Comfort Measures: Not Applicable - Core Measures Any of the following diagnoses?: none Exam - Constitutional Vitals: Temp Pulse Resp BP Pulse Ox 98.8 F 64 18 121/76 94 01/10/22 09:00 01/10/22 22:00 01/10/22 23:41 01/10/22 15:01 01/10/22 22:16 Plan Activity: advance as tolerated, fall precautions Diet: diabetic Special Instructions: record daily weights, record daily BP diary, record blood sugar diary Care Plan Goals: Must be complaint with BG medications Must be compliant with home CPAP Must lose weight, Have yearly feet and Eye exams Follow up with: PRIMARY CARE, [Referring] - 3-5 Days DAYANA FOSTER MD [Staff Physician] - 7 Days Prescriptions: amLODIPine 10 mg PO QDAY #60 tablet Valsartan [Diovan] 160 mg PO BID #60 tablet Insulin Regular, Human [HumuLIN R] 0 unit SQ AC #1 vial Insulin Glargine [Lantus VIAL] 30 units SUB-Q QAM #10 ml Famotidine [Pepcid] 20 mg PO DAILY #30 tablet Other Discharge Orders: Glucometer (Amb) Location: None Selected Glucometer supplies[Amb] Location: None Selected
--- NOTE | 2022-01-11 10:17 | Progress Note ---
Assessment and Plan (1) Acute renal failure (2) Acute respiratory failure (3) DKA (diabetic ketoacidosis) (4) Hypertensive emergency (5) New onset type 1 diabetes mellitus, uncontrolled (6) Sepsis Unknown baseline kidney function, possible 2/2 DM ROLA possibly secondary to ischemic ATN Cr slightly down, monitor. ordered renal US Has some proteinuria, likely from DM. 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 making urine. Objective - Exam Narrative Exam: eneral appearance: Present: no acute distress, well-nourished - EENT Eyes: Present: PERRL ENT: hearing intact, clear oral mucosa - Neck Neck: Present: supple, normal ROM - Respiratory Respiratory effort: normal Respiratory: bilateral: diminished - Cardiovascular Heart Sounds: Present: S1 & S2. Absent: rub, click - Extremities Extremities: pulses symmetrical, No edema Peripheral Pulses: within normal limits - Abdominal General gastrointestinal: Present: soft, non-tender, non-distended, normal bowel sounds Male genitourinary: Present: normal - Integumentary Integumentary: Present: clear, warm, dry - Musculoskeletal Musculoskeletal: gait normal, strength equal bilaterally - Psychiatric Psychiatric: other - Neurologic Neurologic: CNII-XII intact, moves all extremities, other - Vital Signs Vital signs: Vital Signs - 12hr 01/10/22 23:41 Respiratory 18 Rate - Lab 01/11/22 05:55 01/11/22 05:55 Most recent lab results ABG pH 7.365 (7.320-7.450) 01/09/22 09:15 ABG O2 Saturation 96.5 (0-100) 01/09/22 09:15 Calcium 8.3 mg/dL (8.4-10.2) L 01/11/22 05:55 Phosphorus 4.20 mg/dL (2.5-4.5) D 01/09/22 00:46 Magnesium 2.60 mg/dL (1.7-2.3) H 01/09/22 00:46 Urine Creatinine 151.0 mg/dL (0.1-20.0) H 01/09/22 Unknown Urine Sodium 23 mmol/L 01/09/22 Unknown Urine Total Protein 183 mg/dL (5-11.8) H 01/09/22 Unknown Medications & Allergies - Medications Allergies/Adverse Reactions: Allergies No Known Allergies Allergy (Verified 01/08/22 18:54) Home Medications: Home Medications Medication Instructions Recorded Confirmed Last Taken Type Famotidine [Pepcid] 20 mg PO DAILY #30 tablet 01/11/22 Unknown Rx Insulin Glargine [Lantus VIAL] 20 units SUB-Q QHS #10 ml 01/11/22 Unknown Rx Insulin Glargine [Lantus VIAL] 30 units SUB-Q QAM #10 ml 01/11/22 Unknown Rx Insulin Regular, Human [HumuLIN R] 0 unit SQ AC #1 vial 01/11/22 Unknown Rx Valsartan [Diovan] 160 mg PO BID #60 tablet 01/11/22 Unknown Rx amLODIPine 10 mg PO QDAY #60 tablet 01/11/22 Unknown Rx Active Medications: Generic Name Dose Route Start Last Admin Trade Name Freq PRN Reason Stop Dose Admin Acetaminophen 650 mg 01/09/22 00:34 01/10/22 22:41 Acetaminophen 325 Mg Tab PO 650 mg Q4H PRN Administration Pain MILD(1-3)/Fever >100.5/MONROE Albuterol 2.5 mg 01/09/22 00:34 Albuterol 2.5 Mg/3 Ml Nebu IH Q3HRT PRN Shortness Of Breath Amlodipine Besylate 5 mg 01/10/22 13:00 01/10/22 13:22 Amlodipine 5 Mg Tab PO 5 mg QDAY SADAF Administration Dextrose 0 ml 01/09/22 00:54 Dextrose 10% *Hypoglycemia IV PRN PRN Hypoglycemia Protocol Dextrose 50 ml 01/09/22 15:06 Dextrose 50% In Water (25gm) 50 Ml Syringe IV Q30MIN PRN Hypoglycemia Protocol Famotidine 20 mg 01/10/22 22:00 01/10/22 22:39 Famotidine 20 Mg Tab PO 20 mg BID SADAF Administration Hydrophilic Ointment 1 applic 01/08/22 18:59 Lip Therapy Vaseline TP Q2HR PRN Dry Lips Piperacillin Sod/Tazobactam Sod 3.375 gm in 50 mls @ 100 mls/hr 01/09/22 13:00 01/11/22 05:18 Zosyn/Ns 3.375gm/50ml IV 100 mls/hr Q8H SADAF Administration Protocol Insulin Glargine 20 units 01/10/22 10:00 01/10/22 10:12 Insulin Glargine 100 Units/Ml SUB-Q 20 units QAM SADAF Administration Insulin Human Lispro 0 unit 01/09/22 18:00 01/11/22 06:36 Insulin Lispro 100 Unit/Ml SUB-Q 3 unit Q6HR SADAF Administration Protocol Lorazepam 2 mg 01/10/22 12:00 Lorazepam 2 Mg/Ml Vial IV Q4H PRN Agitation Ondansetron HCl 4 mg 01/09/22 00:34 Ondansetron 4 Mg/2 Ml Inj IV Q8H PRN Nausea And Vomiting Quetiapine Fumarate 75 mg 01/10/22 11:00 01/10/22 22:40 Quetiapine 25 Mg Tab PO 75 mg BID SADAF Administration Senna/Docusate Sodium 1 tab 01/10/22 22:00 01/10/22 22:40 Sennosides/Docusate Sodium 8.6/50 Mg Tab PO 1 tab QHS SADAF Administration Sodium Chloride 10 ml 01/09/22 10:00 01/10/22 22:40 Sodium Chloride 0.9% 10 Ml Flush Syringe IV 10 ml BID SADAF Administration Sodium Chloride 10 ml 01/09/22 00:34 Sodium Chloride 0.9% 10 Ml Flush Syringe IV PRN PRN LINE FLUSH
--- NOTE | 2022-01-11 10:35 | Progress Note ---
Assessment and Plan 46 y/o obese male with known NESHA, admitted with DKA and altered mental status. 01/11/22: Continue home CPAP. All others per primary. Pulm status is stable. 01/10/22: Feed patient. Transitioned off drip. Will add scheduled seroquel but if not swallowing pills would do scheduled haldol. Also should give some PRN ativan as well. Once weaned off precedex, stable for floor. 1. Continue insulin drip. If extubated and able to tolerate PO then can switch to long acting insulin 2. Turn all sedation and off and attempt extubation 3. Bipap available for PRN and QHS, have asked to bring in his machine from home 4. Maybe stable for transfer later today 5. Diabetic education and lifestyle changes CCT 31 minutes. Subjective Date of service: 01/11/22 Interval history: No acute events. Successful transfer out of unit. Wore home machine last night. Objective Vital Signs - 12hr 01/10/22 23:41 Respiratory 18 Rate Constitutional: asleep, appears uncomfortable, other (morbidly obese) ENT: other (orally intubated) Effort: normal Ascultation: Bilateral: clear Percussion: Bilateral: not dull Tactile fremitus: Bilateral: normal Cardiovascular: regular rate and rhythm Gastrointestinal: normoactive bowel sounds, soft Extremities: no edema CBC and BMP: 01/11/22 05:55 01/11/22 05:55 ABG, PT/INR, D-dimer: ABG ABG pH 7.365 (7.320-7.450) 01/09/22 09:15 POC ABG pCO2 45.1 mmHg (32.0-48.0) 01/09/22 09:15 POC ABG pO2 80.7 mmHg (83-108) L 01/09/22 09:15 POC ABG HCO3 25.2 01/09/22 09:15 ABG O2 Saturation 96.5 (0-100) 01/09/22 09:15 PT/INR, D-dimer PT 14.6 Sec. (12.2-14.9) 01/08/22 18:58 INR 1.03 (0.87-1.13) 01/08/22 18:58 Abnormal lab findings: Abnormal Labs 02/24/22 02/24/22 02/24/22 18:31 18:58 18:58 WBC 13.6 H RBC 6.06 H Hgb 18.1 H Hct 55.9 H RDW 13.0 L Plt Count [place] % (Auto) [place] # (Auto) Seg Neutrophils % 81.1 H Seg Neutrophils # 11.0 H APTT ABG pH POC ABG pCO2 POC ABG pO2 ABG Hemoglobin ABG Oxyhemoglobin VBG pH Sodium 134 L Potassium Chloride 89.7 L Carbon Dioxide 18 L BUN Creatinine 1.4 H Glucose 663 H* POC Glucose > 600 H Hemoglobin A1c Lactic Acid Calcium Phosphorus Magnesium Alkaline Phosphatase 216 H Total Protein 8.6 H Urine Creatinine Urine Microalbumin Urine Total Protein 01/08/22 01/08/22 01/08/22 18:58 18:58 18:58 WBC RBC Hgb Hct RDW Plt Count [place] % (Auto) [place] # (Auto) Seg Neutrophils % Seg Neutrophils # APTT 20.1 L ABG pH POC ABG pCO2 POC ABG pO2 ABG Hemoglobin ABG Oxyhemoglobin VBG pH 7.262 L Sodium Potassium Chloride Carbon Dioxide BUN Creatinine Glucose POC Glucose Hemoglobin A1c Lactic Acid 6.80 H* Calcium Phosphorus Magnesium Alkaline Phosphatase Total Protein Urine Creatinine Urine Microalbumin Urine Total Protein 01/08/22 01/08/22 01/08/22 18:58 20:19 20:43 WBC RBC Hgb Hct RDW Plt Count [place] % (Auto) [place] # (Auto) Seg Neutrophils % Seg Neutrophils # APTT ABG pH POC ABG pCO2 POC ABG pO2 ABG Hemoglobin ABG Oxyhemoglobin VBG pH Sodium Potassium Chloride Carbon Dioxide BUN Creatinine Glucose POC Glucose > 600 H Hemoglobin A1c 10.2 H Lactic Acid Calcium Phosphorus 7.20 H Magnesium Alkaline Phosphatase Total Protein Urine Creatinine Urine Microalbumin Urine Total Protein 01/08/22 01/08/22 01/08/22 21:05 21:59 22:26 WBC RBC Hgb Hct RDW Plt Count [place] % (Auto) [place] # (Auto) Seg Neutrophils % Seg Neutrophils # APTT ABG pH 7.269 L POC ABG pCO2 50.5 H POC ABG pO2 402.0 H ABG Hemoglobin 17.6 H ABG Oxyhemoglobin 98.8 H VBG pH Sodium Potassium Chloride Carbon Dioxide BUN Creatinine Glucose POC Glucose > 600 H Hemoglobin A1c Lactic Acid 4.30 H* Calcium Phosphorus Magnesium Alkaline Phosphatase Total Protein Urine Creatinine Urine Microalbumin Urine Total Protein 0201/08/22 01/09/22 22:26 23:26 00:32 WBC RBC Hgb Hct RDW Plt Count [place] % (Auto) [place] # (Auto) Seg Neutrophils % Seg Neutrophils # APTT ABG pH POC ABG pCO2 POC ABG pO2 ABG Hemoglobin ABG Oxyhemoglobin VBG pH Sodium Potassium 5.5 H D Chloride 97.2 L Carbon Dioxide 21 L BUN 22 H Creatinine 1.7 H Glucose 639 H* POC Glucose 507 H 422 H Hemoglobin A1c Lactic Acid Calcium Phosphorus Magnesium Alkaline Phosphatase Total Protein Urine Creatinine Urine Microalbumin Urine Total Protein 01/09/22 01/09/22 01/09/22 00:36 00:36 00:46 WBC RBC Hgb Hct RDW Plt Count [place] % (Auto) [place] # (Auto) Seg Neutrophils % Seg Neutrophils # APTT ABG pH POC ABG pCO2 POC ABG pO2 ABG Hemoglobin ABG Oxyhemoglobin VBG pH Sodium Potassium Chloride Carbon Dioxide 20 L BUN 22 H Creatinine 1.7 H Glucose 416 H POC Glucose Hemoglobin A1c Lactic Acid 2.80 H* Calcium Phosphorus Magnesium 2.60 H Alkaline Phosphatase Total Protein Urine Creatinine Urine Microalbumin Urine Total Protein 01/09/22 01/09/22 01/09/22 01:35 02:07 02:07 WBC RBC Hgb Hct RDW Plt Count [place] % (Auto) [place] # (Auto) Seg Neutrophils % Seg Neutrophils # APTT ABG pH POC ABG pCO2 POC ABG pO2 ABG Hemoglobin ABG Oxyhemoglobin VBG pH Sodium Potassium Chloride Carbon Dioxide 21 L BUN 23 H Creatinine 2.5 H Glucose 161 H POC Glucose 212 H Hemoglobin A1c Lactic Acid 2.90 H* Calcium Phosphorus Magnesium Alkaline Phosphatase Total Protein Urine Creatinine Urine Microalbumin Urine Total Protein 01/09/22 01/09/22 01/09/22 02:40 04:31 04:38 WBC RBC Hgb Hct RDW Plt Count [place] % (Auto) [place] # (Auto) Seg Neutrophils % Seg Neutrophils # APTT ABG pH POC ABG pCO2 POC ABG pO2 ABG Hemoglobin ABG Oxyhemoglobin VBG pH Sodium Potassium Chloride Carbon Dioxide 20 L BUN 25 H Creatinine 2.4 H Glucose 175 H POC Glucose 120 H 175 H Hemoglobin A1c Lactic Acid Calcium Phosphorus Magnesium Alkaline Phosphatase Total Protein Urine Creatinine Urine Microalbumin Urine Total Protein 01/09/22 01/09/22 01/09/22 05:31 06:27 07:41 WBC RBC Hgb Hct RDW Plt Count [place] % (Auto) [place] # (Auto) Seg Neutrophils % Seg Neutrophils # APTT ABG pH POC ABG pCO2 POC ABG pO2 ABG Hemoglobin ABG Oxyhemoglobin VBG pH Sodium Potassium Chloride Carbon Dioxide BUN Creatinine Glucose POC Glucose 201 H 169 H 133 H Hemoglobin A1c Lactic Acid Calcium Phosphorus Magnesium Alkaline Phosphatase Total Protein Urine Creatinine Urine Microalbumin Urine Total Protein 01/09/22 01/09/22 01/09/22 08:03 08:17 09:02 WBC RBC Hgb Hct RDW Plt Count [place] % (Auto) [place] # (Auto) Seg Neutrophils % Seg Neutrophils # APTT ABG pH POC ABG pCO2 POC ABG pO2 ABG Hemoglobin ABG Oxyhemoglobin VBG pH Sodium Potassium Chloride 107.7 H Carbon Dioxide BUN 23 H Creatinine 2.2 H Glucose POC Glucose 131 H 145 H Hemoglobin A1c Lactic Acid Calcium Phosphorus Magnesium Alkaline Phosphatase Total Protein Urine Creatinine Urine Microalbumin Urine Total Protein 01/09/22 01/09/22 01/09/22 09:15 09:50 10:44 WBC RBC Hgb Hct RDW Plt Count [place] % (Auto) [place] # (Auto) Seg Neutrophils % Seg Neutrophils # APTT ABG pH POC ABG pCO2 POC ABG pO2 80.7 L ABG Hemoglobin ABG Oxyhemoglobin VBG pH Sodium Potassium Chloride Carbon Dioxide BUN Creatinine Glucose POC Glucose 140 H 132 H Hemoglobin A1c Lactic Acid Calcium Phosphorus Magnesium Alkaline Phosphatase Total Protein Urine Creatinine Urine Microalbumin Urine Total Protein 01/09/22 01/09/22 01/09/22 13:36 14:18 16:25 WBC RBC Hgb Hct RDW Plt Count [place] % (Auto) [place] # (Auto) Seg Neutrophils % Seg Neutrophils # APTT ABG pH POC ABG pCO2 POC ABG pO2 ABG Hemoglobin ABG Oxyhemoglobin VBG pH Sodium Potassium Chloride 110.4 H Carbon Dioxide 20 L BUN 21 H Creatinine 1.8 H Glucose 164 H POC Glucose 166 H 115 H Hemoglobin A1c Lactic Acid Calcium 8.3 L Phosphorus Magnesium Alkaline Phosphatase Total Protein Urine Creatinine Urine Microalbumin Urine Total Protein 01/09/22 01/09/22 01/09/22 16:50 18:04 21:31 WBC RBC Hgb Hct RDW Plt Count [place] % (Auto) [place] # (Auto) Seg Neutrophils % Seg Neutrophils # APTT ABG pH POC ABG pCO2 POC ABG pO2 ABG Hemoglobin ABG Oxyhemoglobin VBG pH Sodium Potassium Chloride 107.6 H Carbon Dioxide 19 L BUN Creatinine 1.6 H Glucose 172 H POC Glucose 120 H 294 H Hemoglobin A1c Lactic Acid Calcium 8.1 L Phosphorus Magnesium Alkaline Phosphatase Total Protein Urine Creatinine Urine Microalbumin Urine Total Protein 01/09/22 01/09/22 01/10/22 23:27 Unknown 04:16 WBC 13.5 H RBC Hgb Hct RDW 12.9 L Plt Count 114 L [place] % (Auto) 8.9 H [place] # (Auto) 1.2 H Seg Neutrophils % 70.9 H Seg Neutrophils # 9.6 H APTT ABG pH POC ABG pCO2 POC ABG pO2 ABG Hemoglobin ABG Oxyhemoglobin VBG pH Sodium Potassium Chloride Carbon Dioxide BUN Creatinine Glucose POC Glucose 280 H Hemoglobin A1c Lactic Acid Calcium Phosphorus Magnesium Alkaline Phosphatase Total Protein Urine Creatinine 151.0 H Urine Microalbumin 108.9 H Urine Total Protein 183 H 01/10/22 01/10/22 01/10/22 04:16 05:14 10:12 WBC RBC Hgb Hct RDW Plt Count [place] % (Auto) [place] # (Auto) Seg Neutrophils % Seg Neutrophils # APTT ABG pH POC ABG pCO2 POC ABG pO2 ABG Hemoglobin ABG Oxyhemoglobin VBG pH Sodium Potassium Chloride 110.0 H Carbon Dioxide 20 L BUN Creatinine Glucose 286 H POC Glucose 293 H 265 H Hemoglobin A1c Lactic Acid Calcium 8.3 L Phosphorus Magnesium Alkaline Phosphatase Total Protein Urine Creatinine Urine Microalbumin Urine Total Protein 01/10/22 01/10/22 01/10/22 12:56 16:00 21:47 WBC RBC Hgb Hct RDW Plt Count [place] % (Auto) [place] # (Auto) Seg Neutrophils % Seg Neutrophils # APTT ABG pH POC ABG pCO2 POC ABG pO2 ABG Hemoglobin ABG Oxyhemoglobin VBG pH Sodium Potassium Chloride Carbon Dioxide BUN Creatinine Glucose POC Glucose 237 H 201 H 259 H Hemoglobin A1c Lactic Acid Calcium Phosphorus Magnesium Alkaline Phosphatase Total Protein Urine Creatinine Urine Microalbumin Urine Total Protein 01/11/22 01/11/22 01/11/22 05:55 05:55 07:04 WBC RBC Hgb Hct RDW Plt Count 110 L [place] % (Auto) [place] # (Auto) Seg Neutrophils % Seg Neutrophils # APTT ABG pH POC ABG pCO2 POC ABG pO2 ABG Hemoglobin ABG Oxyhemoglobin VBG pH Sodium Potassium 3.4 L D Chloride Carbon Dioxide BUN Creatinine Glucose 195 H POC Glucose 178 H Hemoglobin A1c Lactic Acid Calcium 8.3 L Phosphorus Magnesium Alkaline Phosphatase Total Protein Urine Creatinine Urine Microalbumin Urine Total Protein
[2022-01-11] MEDS: amLODIPine 5 MG TAB PO SCH (10:57)
[2022-01-11] MEDS: FAMOTIDINE 20 MG TAB PO SCH (10:58)
[2022-01-11] MEDS: QUEtiapine 25 MG TAB PO SCH (10:58)
[2022-01-11 10:59] VITALS: BP 212/130
[2022-01-11] MEDS: INSULIN GLARGINE 100 UNITS/ML SUB-Q SCH (11:00)
[2022-01-11] MEDS ORDERED: amLODIPine 5 MG TAB PO SCH (11:09)
[2022-01-11] MEDS ORDERED: hydrALAZINE 20 MG/1 ML INJ IV PRN (11:09)
[2022-01-11] MEDS ORDERED: INSULIN LISPRO 100 UNIT/ML SUB-Q SCH (12:00)
[2022-01-11] MEDS ORDERED: VALSARTAN 160MG TAB PO SCH (12:00)
[2022-01-11] MEDS ORDERED: cloNIDine 0.1 MG TAB PO PRN (12:00)
[2022-01-11] MEDS: PIPERACIL/TAZOBACTA 4.5/NS 100 4.5 GM/100 ML VIAL IV SCH ×2 (12:24→14:00)
[2022-01-11] MEDS ORDERED: INSULIN GLARGINE 100 UNITS/ML SUB-Q SCH (12:30)
[2022-01-12] MEDS ORDERED: amLODIPine 10 MG TAB PO SCH (10:00)
== END 2022-01-11 16:18 | disposition home or self-care (01) | DRG 871 ==
LOC: ED 18:13 → CC1 01-09 00:34 → 3A 01-10 15:32
PROVIDERS: ADMIT Hospitalist; ATTEND Internal Medicine
PROC: 0BH17EZ Insertion of Endotracheal Airway into Trachea, Via Natural or Artificial Opening (ICD-10-PCS; principal; 2022-01-08)
PROC: 5A1935Z Respiratory Ventilation, Less than 24 Consecutive Hours (ICD-10-PCS; 2022-01-08)
PROC: 009U3ZX Drainage of Spinal Canal, Percutaneous Approach, Diagnostic (ICD-10-PCS; 2022-01-09)
PROC: 5A09457 Assistance with Respiratory Ventilation, 24-96 Consecutive Hours, Continuous Positive Airway Pressure (ICD-10-PCS; 2022-01-09)
PROC: 4A033R1 Measurement of Arterial Saturation, Peripheral, Percutaneous Approach (ICD-10-PCS; 2022-01-09)
DX: A41.9 Sepsis, unspecified organism (principal); G93.41 Metabolic encephalopathy; E10.10 Type 1 diabetes mellitus with ketoacidosis without coma; N17.0 Acute kidney failure with tubular necrosis; J96.01 Acute respiratory failure with hypoxia; I16.1 Hypertensive emergency; I10 Essential (primary) hypertension; E87.8 Other disorders of electrolyte and fluid balance, not elsewhere classified; D69.6 Thrombocytopenia, unspecified; Z20.822 Contact with and (suspected) exposure to COVID-19
CPT/HCPCS: 36415; 36600; 70450; 71045; 80048; 80053; 80307; 80320; 81001; 82043; 82140; 82805; 82947; 82962; 83036; 83735; 84100; 84156; 84160; 84300; 84443; 84484; 84520; 85025; 85027; 85610; 85730; 86850; 86900; 86901; 87040; 87086; 87116; 89051; 93005; 93010; 94002; 94003; 94640; 94760; G0378; J3480; J3490; J7070; J7121; Q0162; Q9967; G0480; J0133; J0330; J0696; J1200; J1630; J1815; J2001; J2060; J2250; J2543; J2704; J3010; J3370; J7030; J7040; U0003